=== PATIENT | female | born 1945 | race Caucasian/White ===

== ENCOUNTER 2017-11-20 20:15 | Inpatient (IN) | payer MEDICARE, OTHER ==
[2017-11-20] MEDS ORDERED: Zithromax 500 MG/ 250 ML NaCl Premix 500 MG/250 ML IVPB IV STA (20:21)
[2017-11-20] MEDS ORDERED: Xopenex 1.25 MG/0.5 ML UD NEBULE IH ONE ×2 (20:21→20:52)
[2017-11-20] MEDS ORDERED: ROCEPHIN 1 Gm-D5w 50 ml Bag** 1 G/50 ML IVPB IV STA (20:21)
--- NOTE | 2017-11-20 20:21 | ERPHSYRPT ---
- History of Present Illness Time Seen by Provider: 11/20/17 20:15 Source: patient Exam Limitations: no limitations Physician History: SINCE 8 AM TODAY PT HAS HAD SHORTNESS OF AIR; DENIES CHEST PAIN, FEVER, COUGH, ABDOMINAL PAIN. Allergies/Adverse Reactions: codeine Allergy (Severe, Verified 11/20/17 20:43) Swelling SOB quinine Allergy (Severe, Verified 11/20/17 20:43) "DRAW UP INTO ANTONELLA Sulfa (Sulfonamide Antibiotics) Allergy (Mild, Verified 11/20/17 20:43) IV CONTRAST Allergy (Uncoded 11/20/17 20:43) Swelling "DRAW UP INTO A POSTION Home Medications: Fluticasone/Salmeterol [Advair 500-50 Diskus] 1 disk IH BID 04/12/12 [History] Ipratropium/Albuterol Sulfate [Combivent Inhaler] 14.7 gm IH DAILY 04/12/12 [ History] Lorazepam 1 mg [Ativan 1 MG] 2 mg PO HS 04/12/12 [History] Metoprolol Tartrate 25 mg [Lopressor 25MG Tab] 12.5 mg PO BID 04/12/12 [ History] Polyethylene Glycol 3350 17 gm [Miralax Powder 17GM PACKET] 17 gm PO DAILY PRN 04/12/12 [History] Prednisolone [Millipred Dp] 5 mg PO DAILY 04/12/12 [History] Tiotropium [place] Inhaler [Spiriva 18 Mcg/Cap Inhaler] 1 ea IH DAILY 12/07 [History] Hx Tetanus, Diphtheria Vaccination/Date Given: No Hx Influenza Vaccination/Date Given: Yes (2012) Hx Pneumococcal Vaccination/Date Given: Yes (2008) - Review of Systems Constitutional: No Fever Respiratory: Dyspnea, No Cough Cardiac: No Chest Pain Abdominal/Gastrointestinal: No Abdominal Pain, No Vomiting All Other Systems: Reviewed and Negative - Past Medical History Pertinent Past Medical History: Yes Neurological History: No Pertinent History ENT History: No Pertinent History Cardiac History: Angina, Hypertension Respiratory History: Asthma, Bronchitis, COPD, Pneumonia Endocrine Medical History: No Pertinent History Musculoskeletal History: No Pertinent History GI Medical History: Gallbladder Disease History: No Pertinent History Psycho-Social History: Anxiety Female Reproductive Disorders: No Pertinent History - Past Surgical History Past Surgical History: Yes Neuro Surgical History: No Pertinent History Cardiac: Cardiac Stent Respiratory: No Pertinent History Gastrointestinal: Bowel Surgery, Cholecystectomy Genitourinary: Other Female Surgical History: Hysterectomy Other Surgical History: BLADDER TACKED. 2 BACK. - Social History Smoking Status: Former smoker Exposure to second hand smoke: No Drug Use: none Patient Lives Alone: No - Nursing Vital Signs Nursing Vital Signs: Initial Vital Signs Pulse Rate 112 H 11/20/17 20:22 Respiratory Rate 24 11/20/17 20:22 Blood Pressure 135/88 11/20/17 20:22 O2 Sat by Pulse Oximetry 100 11/20/17 20:22 Pain Scale Pain Intensity 0 - Physical Exam General Appearance: moderate distress, alert Eye Exam: PERRL/EOMI Ears, Nose, Throat Exam: hearing grossly normal, normal pharynx Neck Exam: normal inspection Respiratory Exam: respiratory distress, airway intact, diminished breath sounds , accessory muscle use, wheezing Cardiovascular/Chest Exam: normal heart sounds Abdominal/Gastrointestinal Exam: soft, normal bowel sounds Extremity Exam: No pedal edema Peripheral Pulses Exam: dorsalis-pedis (R): 2+, dorsalis-pedis (L): 2+ Neurologic Exam: alert, cooperative Skin Exam: warm, dry SpO2 Interpretation: hypoxic SpO2: 82 Oxygen Delivery: Nasal Cannula (4L) - Course Nursing assessment & vital signs reviewed: Yes EKG Interpreted by Me: RATE ([id number]), Sinus Tach, NORMAL AXIS, Non-specific ST Changes - Radiology Exams Chest X-ray Interpretation: Interpreted by me (PNEUMONIA) Ordered Tests: Active Orders 24 hr Category Date Time Status [employer] STAT Care 11/20/17 20:22 Active Clean Catch Urine Specimen STAT Care 11/20/17 20:21 Active EKG-ER Only STAT Care 11/20/17 20:21 Active EKG-ER Only STAT Care 11/20/17 23:42 Active IV Insertion STAT Care 11/20/17 20:21 Active Oxygen-ED Only NASAL CANNULA 4 lpm Care 11/21/17 00:01 Active Pulse Oximetry (ED) STAT Care 11/20/17 20:21 Active CHEST 1 VIEW (PORTABLE) Stat Exams 11/20/17 20:22 Taken AMYLASE Stat Lab 11/20/17 20:24 Completed ARTERIAL BLOOD GASES Stat Lab 11/20/17 20:34 Completed ARTERIAL BLOOD GASES Stat Lab 11/21/17 00:48 Completed BLOOD CULTURE Stat Lab 11/20/17 20:50 Received CBC W DIFF Stat Lab 11/20/17 20:25 Completed CMP Stat Lab 11/20/17 20:25 Completed CULTURE,SPUTUM Stat Lab 11/20/17 20:22 Ordered D-DIMER QUANTITATION Stat Lab 11/20/17 20:25 Completed LIPASE Stat Lab 11/20/17 20:24 Completed Lactic Acid Stat Lab 11/20/17 20:34 Completed MAGNESIUM Stat Lab 11/20/17 20:25 Completed NT PRO BNP Stat Lab 11/20/17 20:25 Completed PROTIME WITH INR Stat Lab 11/20/17 20:25 Completed PTT Stat Lab 11/20/17 20:25 Completed TROPONIN Q3H Lab 11/20/17 20:30 Completed TROPONIN Q3H Lab 11/20/17 23:45 Received TROPONIN Q3H Lab 11/21/17 02:45 Ordered TROPONIN Q3H Lab 11/21/17 05:45 Ordered TROPONIN Q3H Lab 11/21/17 08:45 Ordered TROPONIN Q3H Lab 11/21/17 11:45 Ordered UA W/RFX UR CULTURE Stat Lab 11/20/17 20:21 Ordered BiPap/CPAP Assessment STAT RT 11/20/17 20:21 Completed Respiratory Nebulizer STAT RT 11/20/17 20:22 Completed Medication Summary Generic Name Dose Route Start Last Admin Trade Name Freq PRN Reason Stop Dose Admin Sodium Chloride 1,000 mls @ 100 mls/hr 11/20/17 20:30 11/20/17 20:30 Sodium Chloride 0.9% 1000 Ml IV 12/20/17 20:29 100 mls/hr .Q10H JAILENE Administration Discontinued Medications Generic Name Dose Route Start Last Admin Trade Name Freq PRN Reason Stop Dose Admin Acetaminophen 650 mg 11/20/17 22:06 11/20/17 22:13 Tylenol 325 Mg PO 11/20/17 22:07 650 mg STAT ONE Administration Acetaminophen Confirm 11/20/17 22:10 Tylenol 325 Mg Administered 11/20/17 22:11 Dose 650 mg .ROUTE .STK-MED ONE Ceftriaxone Sodium/Dextrose 1 g in 50 mls @ 100 mls/hr 11/20/17 20:21 21:10 Rocephin 1 Gm-D5w 50 Ml Bag IV 11/20/17 20:50 100 mls/hr STAT STA Administration Sodium Chloride 1,000 mls @ 999 mls/hr 11/20/17 20:24 11/20/17 20:30 Sodium Chloride 0.9% 1000 Ml IV 11/20/17 21:24 999 mls/hr .Q1H1M STA Administration Azithromycin 500 mg in 250 mls @ 250 mls/hr 11/20/17 20:21 11/20/17 21:11 Zithromax 500 Mg/ 250 Ml Nacl Premix IV 11/20/17 21:20 250 mls/hr STAT STA Administration Azithromycin Confirm 11/20/17 20:55 Zithromax 500 Mg/ 250 Ml Nacl Premix Administered 11/20/17 20:56 Dose 500 mg in 250 mls @ ud IV .STK-MED ONE Ceftriaxone Sodium/Dextrose Confirm 11/20/17 20:55 Rocephin 1 Gm-D5w 50 Ml Bag Administered 11/20/17 20:56 Dose 1 g in 50 mls @ ud IV .STK-MED ONE Levalbuterol HCl 1.25 mg 11/20/17 20:21 11/20/17 20:52 Xopenex 1.25 Mg/0.5 Ml Ud Nebule IH 11/20/17 20:22 1.25 mg STAT ONE Administration Levalbuterol HCl Confirm 11/20/17 20:52 Xopenex 1.25 Mg/0.5 Ml Ud Nebule Administered 11/20/17 20:53 Dose 1.25 mg IH .STK-MED ONE Levalbuterol HCl 1.25 mg 11/21/17 00:51 Xopenex 1.25 Mg/0.5 Ml Ud Nebule IH 11/21/17 00:52 STAT ONE Morphine Sulfate Confirm 11/20/17 23:17 Morphine Sulfate 4 Mg Inj Administered 11/20/17 23:18 Dose 4 mg .ROUTE .STK-MED ONE Morphine Sulfate 4 mg 11/20/17 23:20 11/20/17 23:23 Morphine Sulfate 4 Mg Inj IV 11/20/17 23:21 4 mg STAT ONE Administration Nitroglycerin 0.4 mg 11/20/17 21:21 11/20/17 20:26 Nitrostat 0.4 Mg (Ed) SL 11/20/17 21:22 0.4 mg STAT ONE Administration Promethazine HCl Confirm 11/20/17 23:17 Phenergan 25 Mg Inj Administered 11/20/17 23:18 Dose 25 mg .ROUTE .STK-MED ONE Promethazine HCl 6.25 mg 11/20/17 23:20 11/20/17 23:23 Phenergan 25 Mg Inj IV 11/20/17 23:21 6.25 mg STAT ONE Administration Sodium Chloride Confirm 11/20/17 20:52 Sodium Chloride 3 Ml Ud Nebules Administered 11/20/17 20:53 Dose 3 ml IH .STK-MED ONE Lab/Rad Data: Laboratory Result Diagrams 11/20/17 20:25 11/20/17 20:25 Laboratory Results 11/21/17 11/20/17 11/20/17 Range/Units 00:48 20:34 20:34 WBC (4.0-10.5) K/mm3 RBC (4.1-5.4) M/mm3 Hgb (12.0-16.0) gm/dl Hct (35-47) % MCV (78-100) fl MCH (26-32) pg MCHC (32-36) g/dl RDW (11.5-14.0) % Plt Count (150-450) K/mm3 MPV (6-9.5) fl Gran % (36.0-66.0) % Eos # (Auto) (0-0.5) Absolute Lymphs (auto) (1.0-4.6) Absolute Monos (auto) (0.0-1.3) Lymphocytes % (24.0-44.0) % Monocytes % (0.0-12.0) % Eosinophils % (0.00-5.0) % Basophils % (0.0-0.4) % Absolute Granulocytes (1.4-6.9) Basophils # (0-0.4) PT (9.95-12.35) SECONDS INR (0.8-3.0) APTT (25.3-37.0) SECONDS D-Dimer (215-500) ng/mL Puncture Site LEFT RADIAL RIGHT BRACHIAL pCO2 60 H* 43 (35-45) mmHg pO2 103 H 156 H* (75-100) mmHg Base Excess -1.1 1.5 (-2.0-2.0) O2 Saturation 95.1 96.0 (94-100) g/dF ABG pH 7.26 L 7.40 (7.35-7.45) ABG HCO3 26.9 26.6 (22-28) ABG O2 Sat (Measured) 98.3 99.0 (95-100) % Giles Test YES NOT APPLICABLE A-a Gradient 79 147 a/A Ratio 0.57 0.51 Hemoglobin 11.9 11.6 Carboxyhemoglobin 2.3 1.7 (0.0-6.9) % THgb Methemoglobin 1.0 L 1.2 L (1.4-1.5) % Temperature 37.0 37.0 C POC O2 Flow Rate 36 50 % Inspiratory BiPAP 12 Expiratory BiPAP 6 Sodium (137-145) mmol/L Potassium 4.6 3.4 L (3.5-5.1) mmol/L Chloride (98-107) mmol/L Carbon Dioxide (22-30) mmol/L Anion Gap (5-15) MEQ/L BUN (7-17) mg/dL Creatinine (0.52-1.04) mg/dL Estimated GFR ML/MIN Glucose (74-106) mg/dL Lactic Acid 0.9 (0.4-2.0) Calcium (8.4-10.2) mg/dL Magnesium (1.6-2.3) mg/dL Total Bilirubin (0.2-1.3) mg/dL AST (14-36) U/L ALT (0-35) U/L Alkaline Phosphatase (38-126) U/L Troponin I (0.000-0.034) ng/mL NT-Pro-B Natriuret Pep (0-900) pg/mL Serum Total Protein (6.3-8.2) g/dL Albumin (3.5-5.0) g/dL Amylase (30-110) U/L Lipase (23-300) U/L 11/20/17 11/20/17 11/20/17 Range/Units 20:30 20:25 20:25 WBC (4.0-10.5) K/mm3 RBC (4.1-5.4) M/mm3 Hgb (12.0-16.0) gm/dl Hct (35-47) % MCV (78-100) fl MCH (26-32) pg MCHC (32-36) g/dl RDW (11.5-14.0) % Plt Count (150-450) K/mm3 MPV (6-9.5) fl Gran % (36.0-66.0) % Eos # (Auto) (0-0.5) Absolute Lymphs (auto) (1.0-4.6) Absolute Monos (auto) (0.0-1.3) Lymphocytes % (24.0-44.0) % Monocytes % (0.0-12.0) % Eosinophils % (0.00-5.0) % Basophils % (0.0-0.4) % Absolute Granulocytes (1.4-6.9) Basophils # (0-0.4) PT 13.1 H (9.95-12.35) SECONDS INR 1.18 (0.8-3.0) APTT 31.9 (25.3-37.0) SECONDS D-Dimer 397.63 (215-500) ng/mL Puncture Site pCO2 (35-45) mmHg pO2 (75-100) mmHg Base Excess (-2.0-2.0) O2 Saturation (94-100) g/dF ABG pH (7.35-7.45) ABG HCO3 (22-28) ABG O2 Sat (Measured) (95-100) % Giles Test A-a Gradient a/A Ratio Hemoglobin Carboxyhemoglobin (0.0-6.9) % THgb Methemoglobin (1.4-1.5) % Temperature C POC O2 Flow Rate % Inspiratory BiPAP Expiratory BiPAP Sodium 139 (137-145) mmol/L Potassium 4.2 (3.5-5.1) mmol/L Chloride 98 (98-107) mmol/L Carbon Dioxide 32 H (22-30) mmol/L Anion Gap 13.5 (5-15) MEQ/L BUN 13 (7-17) mg/dL Creatinine 0.70 (0.52-1.04) mg/dL Estimated GFR > 60.0 ML/MIN Glucose 146 H (74-106) mg/dL Lactic Acid (0.4-2.0) Calcium 9.4 (8.4-10.2) mg/dL Magnesium 1.9 (1.6-2.3) mg/dL Total Bilirubin 0.50 (0.2-1.3) mg/dL AST 48 H (14-36) U/L ALT 29 (0-35) U/L Alkaline Phosphatase 95 (38-126) U/L Troponin I < 0.012 (0.000-0.034) ng/mL NT-Pro-B Natriuret Pep 172 (0-900) pg/mL Serum Total Protein 7.5 (6.3-8.2) g/dL Albumin 4.2 (3.5-5.0) g/dL Amylase (30-110) U/L Lipase (23-300) U/L 11/20/17 11/20/17 Range/Units 20:25 20:24 WBC 23.2 H (4.0-10.5) K/mm3 RBC 4.70 (4.1-5.4) M/mm3 Hgb 12.8 (12.0-16.0) gm/dl Hct 41.7 (35-47) % MCV 88.7 (78-100) fl MCH 27.2 (26-32) pg MCHC 30.7 L (32-36) g/dl RDW 14.0 (11.5-14.0) % Plt Count 305 (150-450) K/mm3 MPV 10.6 H (6-9.5) fl Gran % 67.3 H (36.0-66.0) % Eos # (Auto) 0.18 (0-0.5) Absolute Lymphs (auto) 4.36 (1.0-4.6) Absolute Monos (auto) 2.99 H (0.0-1.3) Lymphocytes % 18.8 L (24.0-44.0) % Monocytes % 12.9 H (0.0-12.0) % Eosinophils % 0.8 (0.00-5.0) % Basophils % 0.2 (0.0-0.4) % Absolute Granulocytes 15.63 H (1.4-6.9) Basophils # 0.04 (0-0.4) PT (9.95-12.35) SECONDS INR (0.8-3.0) APTT (25.3-37.0) SECONDS D-Dimer (215-500) ng/mL Puncture Site pCO2 (35-45) mmHg pO2 (75-100) mmHg Base Excess (-2.0-2.0) O2 Saturation (94-100) g/dF ABG pH (7.35-7.45) ABG HCO3 (22-28) ABG O2 Sat (Measured) (95-100) % Giles Test A-a Gradient a/A Ratio Hemoglobin Carboxyhemoglobin (0.0-6.9) % THgb Methemoglobin (1.4-1.5) % Temperature C POC O2 Flow Rate % Inspiratory BiPAP Expiratory BiPAP Sodium (137-145) mmol/L Potassium (3.5-5.1) mmol/L Chloride (98-107) mmol/L Carbon Dioxide (22-30) mmol/L Anion Gap (5-15) MEQ/L BUN (7-17) mg/dL Creatinine (0.52-1.04) mg/dL Estimated GFR ML/MIN Glucose (74-106) mg/dL Lactic Acid (0.4-2.0) Calcium (8.4-10.2) mg/dL Magnesium (1.6-2.3) mg/dL Total Bilirubin (0.2-1.3) mg/dL AST (14-36) U/L ALT (0-35) U/L Alkaline Phosphatase (38-126) U/L Troponin I (0.000-0.034) ng/mL NT-Pro-B Natriuret Pep (0-900) pg/mL Serum Total Protein (6.3-8.2) g/dL Albumin (3.5-5.0) g/dL Amylase 50 (30-110) U/L Lipase 35 (23-300) U/L - Progress Discussed with Dr.: Supa (OBS - [id number]) - Departure Time of Disposition: 01:00 Departure Disposition: Observation Clinical Impression: ACUTE RESPIRATORY FAILURE, PNEUMONIA, COPD, ANXIETY, HTN Condition: Stable Critical Care Time: Yes Critical Care Time(excluding separately billable procedures): 30-74 minutes Referrals: LETI MORALES MD [Primary Care Provider] -
[2017-11-20] MEDS ORDERED: Sodium Chloride 0.9% 1000 ML 1,000 ML IV STA (20:24)
[2017-11-20] MEDS ORDERED: Sodium Chloride 0.9% 1000 ML 1,000 ML IV SCH (20:30)
[2017-11-20] MEDS ORDERED: Sodium Chloride 0.9% 1000 ML 2,000 ML ONE (20:30)
[2017-11-20 20:48] LABS: A-aADO2 147; ABG HEMOGLOBIN 11.6; ABG POTASSIUM 3.4 (3.5-5.1); ARTERIAL BLOOD GAS BASE EXCESS 1.5 (-2.0-2.0); ARTERIAL BLOOD GAS FIO2 50 %; ARTERIAL BLOOD GAS PCO2 43 mmHg (35-45); ARTERIAL BLOOD GAS PO2 156 mmHg (75-100); CARBOXYHEMOGLOBIN 1.7 % THgb (0.0-6.9); HCO3- 26.6 (22-28); Methhemoglobin 1.2 % (1.4-1.5); paO2 pAO1 0.51
[2017-11-20 20:49] LABS: ABG SITE RIGHT BRACHIAL
[2017-11-20] MEDS ORDERED: Sodium Chloride 3 ML UD NEBULES IH ONE (20:52)
[2017-11-20] MEDS ORDERED: Zithromax 500 MG/ 250 ML NaCl Premix 500 MG/250 ML IVPB IV ONE (20:55)
[2017-11-20] MEDS ORDERED: ROCEPHIN 1 Gm-D5w 50 ml Bag** 1 G/50 ML IVPB IV ONE (20:55)
[2017-11-20 21:01] LABS: BASOPHIL % 0.2 % (0.0-0.4); Basophil (Absolute #) 0.04 (0-0.4); Eosinophil % 0.8 % (0.00-5.0); Eosinophil (Absolute #) 0.18 (0-0.5); Granulocyte Absolute (ANC) 15.63 (1.4-6.9); Granulocytes % 67.3 % (36.0-66.0); Hematocrit 41.7 % (35-47); Hemoglobin 12.8 gm/dl (12.0-16.0); Lymphocyte (Absolute #) 4.36 (1.0-4.6); Lymphocytes % 18.8 % (24.0-44.0); Mean Cell Volume 88.7 fl (78-100); Mean Corpuscular Hemoglobin 27.2 pg (26-32); Mean Corpuscular Hgb Concent. 30.7 g/dl (32-36); Mean Platelet Volume 10.6 fl (6-9.5); Monocyte (Absolute #) 2.99 (0.0-1.3); Monocytes % 12.9 % (0.0-12.0); Platelet Count 305 K/mm3 (150-450); White Blood Count 23.2 K/mm3 (4.0-10.5)
[2017-11-20 21:15] LABS: INR 1.18 (0.8-3.0)
[2017-11-20 21:17] LABS: D-DIMER QUANTITATION 397.63 ng/mL (215-500)
[2017-11-20] MEDS ORDERED: Nitrostat 0.4 MG (ED) SL ONE (21:21)
[2017-11-20 21:22] LABS: ALBUMIN 4.2 g/dL (3.5-5.0); ALKALINE PHOSPHATASE 95 U/L (38-126); ANION GAP 13.5 MEQ/L (5-15); BLOOD UREA NITROGEN 13 mg/dL (7-17); CHLORIDE 98 mmol/L (98-107); Calcium 9.4 mg/dL (8.4-10.2); Carbon Dioxide 32 mmol/L (22-30); Glucose 146 mg/dL (74-106); Potassium 4.2 mmol/L (3.5-5.1); SGOT/AST 48 U/L (14-36); SGPT/ALT 29 U/L (0-35); SODIUM 139 mmol/L (137-145); Total Protein 7.5 g/dL (6.3-8.2)
[2017-11-20 21:22] LABS: AMYLASE 50 U/L (30-110); LIPASE 35 U/L (23-300)
[2017-11-20 21:23] LABS: PTT 31.9 SECONDS (25.3-37.0)
[2017-11-20 21:31] LABS: NT PRO BNP 172 pg/mL (0-900)
[2017-11-20] MEDS ORDERED: TYLENOL 325 MG PO ONE (22:06)
[2017-11-20] MEDS ORDERED: TYLENOL 325 MG ONE (22:10)
[2017-11-20] MEDS ORDERED: MORPHINE SULFATE 4 MG INJ ONE (23:17)
[2017-11-20] MEDS ORDERED: Phenergan 25 MG INJ ONE (23:17)
[2017-11-20] MEDS ORDERED: MORPHINE SULFATE 4 MG INJ IV ONE (23:20)
[2017-11-20] MEDS ORDERED: Phenergan 25 MG INJ IV ONE (23:20)
[2017-11-21] MEDS ORDERED: Xopenex 1.25 MG/0.5 ML UD NEBULE IH ONE ×2 (00:51→01:08)
[2017-11-21 00:55] LABS: A-aADO2 79; ABG HEMOGLOBIN 11.9; ABG POTASSIUM 4.6 (3.5-5.1); ARTERIAL BLD GAS O2 SATURATION 98.3 % (95-100); ARTERIAL BLOOD GAS BASE EXCESS -1.1 (-2.0-2.0); ARTERIAL BLOOD GAS FIO2 36 %; ARTERIAL BLOOD GAS PO2 103 mmHg (75-100); ARTERIAL BLOOD GAS pH 7.26 (7.35-7.45); CARBOXYHEMOGLOBIN 2.3 % THgb (0.0-6.9); HCO3- 26.9 (22-28); HGB O2 SAT 95.1 g/dF (94-100); paO2 pAO1 0.57
[2017-11-21 00:56] LABS: ABG SITE LEFT RADIAL; ALLEN TEST OK? YES; ARTERIAL BLOOD GAS PCO2 60 mmHg (35-45)
[2017-11-21] MEDS ORDERED: Sodium Chloride 3 ML UD NEBULES IH ONE (01:08)
[2017-11-21 01:12] LABS: Appearance CLEAR (CLEAR); Bilirubin NEGATIVE (NEGATIVE); Blood TRACE NON-HEM Ery/ul (0-5); Glucose NEGATIVE (NEGATIVE); Ketones SMALL (NEGATIVE); Leukocyte Esterase NEGATIVE (NEGATIVE); Nitrite POSITIVE (NEGATIVE); Protein,Urine Dip TRACE (Negative); Specific Gravity 1.015 (1.005-1.025); Urobilinogen NORMAL mg/dL (0-1)
[2017-11-21 01:20] LABS: Bacteria MODERATE /HPF (NEGATIVE); Epithelial Cells FEW /HPF (FEW); Hyaline Casts 0-2 /LPF (0-2)
[2017-11-21 01:41] LABS: Slide Review 1 YES
[2017-11-21] MEDS ORDERED: PROVENTIL 2.5 MG/3 ML NEB IH PRN (02:22)
[2017-11-21] MEDS ORDERED: Phenergan 25 MG INJ IV PRN (02:22)
[2017-11-21] MEDS ORDERED: DUONEB 0.5-3 MG/3 ml Neb IH SCH ×2 (03:00→11:00)
[2017-11-21] MEDS: PROVENTIL 2.5 MG/3 ML NEB IH SCH ×5 (05:39→22:58)
[2017-11-21] MEDS: Advair Hfa 230/21 Mcg COMMON CANISTER IH SCH ×2 (05:50→19:03)
[2017-11-21] MEDS: Spiriva 18 Mcg/Cap Inhaler IH SCH (05:50)
[2017-11-21 05:52] LABS: A-aADO2 244; ABG HEMOGLOBIN 11.5; ABG POTASSIUM 4.3 (3.5-5.1); ARTERIAL BLD GAS O2 SATURATION 95.3 % (95-100); ARTERIAL BLOOD GAS BASE EXCESS 0.1 (-2.0-2.0); ARTERIAL BLOOD GAS FIO2 50 %; ARTERIAL BLOOD GAS PCO2 43 mmHg (35-45); ARTERIAL BLOOD GAS PO2 59 mmHg (75-100); ARTERIAL BLOOD GAS pH 7.38 (7.35-7.45); CARBOXYHEMOGLOBIN 3.7 % THgb (0.0-6.9); HCO3- 25.4 (22-28); HGB O2 SAT 90.5 g/dF (94-100); Methhemoglobin 1.2 % (1.4-1.5); paO2 pAO1 0.19
[2017-11-21 05:53] LABS: ABG SITE LEFT RADIAL; ALLEN TEST OK? YES
[2017-11-21 05:59] LABS: BASOPHIL % 0.1 % (0.0-0.4); Basophil (Absolute #) 0.01 (0-0.4); Eosinophil (Absolute #) 0 (0-0.5); Granulocyte Absolute (ANC) 13.14 (1.4-6.9); Hematocrit 36.2 % (35-47); Lymphocyte (Absolute #) 0.49 (1.0-4.6); Lymphocytes % 3.5 % (24.0-44.0); Mean Cell Volume 90.3 fl (78-100); Mean Corpuscular Hemoglobin 27.4 pg (26-32); Mean Corpuscular Hgb Concent. 30.4 g/dl (32-36); Mean Platelet Volume 10.6 fl (6-9.5); Monocytes % 1.4 % (0.0-12.0); Platelet Count 208 K/mm3 (150-450); Red Blood Count 4.01 M/mm3 (4.1-5.4); Red Cell Distribution Width 13.8 % (11.5-14.0); White Blood Count 13.8 K/mm3 (4.0-10.5)
[2017-11-21 06:19] LABS: ALBUMIN 3.7 g/dL (3.5-5.0); ALKALINE PHOSPHATASE 74 U/L (38-126); ANION GAP 14.3 MEQ/L (5-15); BLOOD UREA NITROGEN 15 mg/dL (7-17); CHLORIDE 103 mmol/L (98-107); Calcium 8.2 mg/dL (8.4-10.2); Carbon Dioxide 27 mmol/L (22-30); Creatinine 1 0.61 mg/dL (0.52-1.04); Glucose 133 mg/dL (74-106); Potassium 4.6 mmol/L (3.5-5.1); SGOT/AST 55 U/L (14-36); SGPT/ALT 40 U/L (0-35); SODIUM 140 mmol/L (137-145); Total Protein 6.7 g/dL (6.3-8.2)
[2017-11-21] MEDS: MORPHINE SULFATE 2 MG INJ IV PRN ×4 (06:52→23:07)
[2017-11-21 08:00] LABS: Slide Review 1 YES
--- NOTE | 2017-11-21 08:16 | PCM.HP ---
History of Present Illness - Chief Complaint Chief Complaint: Pneumonia, COPD History of Present Illness: is a 72 year old female who presented to the ER with increasing cough and shortness of breath, she has a history of significant copd and cardiac arrest. - Review of Systems Constitutional: No Fever, No Chills Respiratory: Cough, Short Of Breath Cardiac: No Chest Pain, No Edema, No Syncope Abdominal/Gastrointestinal: No Abdominal Pain, No Nausea, No Vomiting, No Diarrhea Genitourinary Symptoms: No Dysuria Skin: No Rash All Other Systems: Reviewed and Negative Medications & Allergies Home Medications: Home Medication List Fluticasone/Salmeterol [Advair 500-50 Diskus] 1 disk IH BID 04/12/12 [History Confirmed 09/18/13] Ipratropium/Albuterol Sulfate [Combivent Inhaler] 14.7 gm IH DAILY 04/12/12 [ History Confirmed 09/18/13] Lorazepam 1 mg [Ativan 1 MG] 2 mg PO HS 04/12/12 [History Confirmed ] Metoprolol Tartrate 25 mg [Lopressor 25MG Tab] 12.5 mg PO BID 04/12/12 [ History Confirmed 09/18/13] Polyethylene Glycol 3350 17 gm [Miralax Powder 17GM PACKET] 17 gm PO DAILY PRN 04/12/12 [History Confirmed 09/18/13] Prednisolone [Millipred Dp] 5 mg PO DAILY 04/12/12 [History Confirmed 09/18/13] Tiotropium [place] Inhaler [Spiriva 18 Mcg/Cap Inhaler] 1 ea IH DAILY 12/07 [History Confirmed 09/18/13] Albuterol 2.5 mg/0.5 ml [PROVENTIL Solution 2.5 MG/0.5 ML] 2.5 mg IH TID # 0 vial.neb. 04/13/12 [Rx Confirmed 09/18/13] Aspirin [Aspir 81] 81 mg PO DAILY #0 tablet.dr 04/13/12 [Rx Confirmed 09/18/13] Allergies/Adverse Reactions: Allergies Allergy/AdvReac Type Severity Reaction Status Date / Time codeine Allergy Severe Swelling Verified 11/20/17 20:43 quinine Allergy Severe Verified 11/20/17 20:43 Sulfa (Sulfonamide Allergy Mild Verified 11/20/17 20:43 Antibiotics) IV CONTRAST Allergy Swelling Uncoded 11/20/17 20:43 - Past Medical History Past Medical History: Yes Neurological History: No Pertinent History ENT History: No Pertinent History Cardiac History: Angina, Coronary Artery Disease, Hypertension, Other Respiratory History: Asthma, Bronchitis, COPD, Pneumonia Endocrine Medical History: No Pertinent History Musculoskelatal History: No Pertinent History GI Medical History: Gallbladder Disease History: No Pertinent History Pyscho-Social History: Anxiety Reproductive Disorders: No Pertinent History Comment: Hx of 5 heart stents - Female History Are you now?: No - Past Surgical History Past Surgical History: Yes Neuro Surgical History: No Pertinent History Cardiac History: Cardiac Stent Respiratory Surgery: No Pertinent History GI Surgical History: Cholecystectomy, Rectal Surgery Genitourinary Surgical Hx: Other Female Surgical History: Hysterectomy Other Surgical History: BLADDER TACKED. 2 BACK surgery. - Social History Smoking Status: Former smoker Exposure to second hand smoke: No Alcohol: None Drug Use: none - Physical Exam Vital Signs: Vital Signs - 24 hr Temp Pulse Resp BP Pulse Ox 11/21/17 05:39 86 18 98 11/21/17 04:00 97.6 F 79 18 120/94 99 11/21/17 03:00 99 11/21/17 02:30 93 H 18 157/114 99 11/21/17 01:09 93 H 18 99 11/21/17 01:03 82 L 11/21/17 00:40 79 28 H 157/114 93 L 11/20/17 23:57 79 24 122/76 99 11/20/17 23:02 84 24 139/89 99 11/20/17 22:04 83 24 116/98 99 11/20/17 21:05 109 H 24 157/80 99 11/20/17 20:52 111 H 24 100 11/20/17 20:39 100 11/20/17 20:23 144 H 28 H 200/139 83 L 11/20/17 20:22 112 H 24 135/88 100 Oxygen-Last 24 hours O2 Percentage 50% O2 Percentage 4 Liters = 36% O2 Percentage 4 Liters = 36% General Appearance: no apparent distress, alert Eye Exam: PERRL/EOMI, eyes nml inspection Respiratory Exam: diminished breath sounds, prolonged expirations, wheezing Cardiovascular Exam: regular rate/rhythm, normal heart sounds, normal peripheral pulses Gastrointestinal/Abdomen Exam: soft, normal bowel sounds, No tenderness, No mass Extremity Exam: normal inspection, normal range of motion, pelvis stable Skin Exam: normal color, warm, dry, No rash Results - Labs Lab/Micro Results: Lab Results-Last 24 Hours 11/21/17 11/21/17 11/21/17 Range/Units 02:35 05:44 05:55 WBC (4.0-10.5) K/mm3 RBC (4.1-5.4) M/mm3 Hgb (12.0-16.0) gm/dl Hct (35-47) % MCV (78-100) fl MCH (26-32) pg MCHC (32-36) g/dl RDW (11.5-14.0) % Plt Count (150-450) K/mm3 MPV (6-9.5) fl Gran % (36.0-66.0) % Eos # (Auto) (0-0.5) Absolute Lymphs (auto) (1.0-4.6) Absolute Monos (auto) (0.0-1.3) Lymphocytes % (24.0-44.0) % Monocytes % (0.0-12.0) % Eosinophils % (0.00-5.0) % Basophils % (0.0-0.4) % Absolute Granulocytes (1.4-6.9) Basophils # (0-0.4) Puncture Site LEFT RADIAL pCO2 43 (35-45) mmHg pO2 59 L (75-100) mmHg Base Excess 0.1 (-2.0-2.0) O2 Saturation 90.5 L (94-100) g/dF ABG pH 7.38 (7.35-7.45) ABG HCO3 25.4 (22-28) ABG O2 Sat (Measured) 95.3 (95-100) % Giles Test YES A-a Gradient 244 a/A Ratio 0.19 Hemoglobin 11.5 Carboxyhemoglobin 3.7 (0.0-6.9) % THgb Methemoglobin 1.2 L (1.4-1.5) % Potassium 4.3 (3.5-5.1) Temperature 37.0 C POC O2 Flow Rate 50 % Inspiratory BiPAP 14 Expiratory BiPAP 6 Sodium (137-145) mmol/L Chloride (98-107) mmol/L Carbon Dioxide (22-30) mmol/L Anion Gap (5-15) MEQ/L BUN (7-17) mg/dL Creatinine (0.52-1.04) mg/dL Estimated GFR ML/MIN Glucose (74-106) mg/dL Calcium (8.4-10.2) mg/dL Total Bilirubin (0.2-1.3) mg/dL AST (14-36) U/L ALT (0-35) U/L Alkaline Phosphatase (38-126) U/L Troponin I 0.020 0.012 (0.000-0.034) ng/mL Serum Total Protein (6.3-8.2) g/dL Albumin (3.5-5.0) g/dL Slides for Path Review 11/21/17 11/21/17 Range/Units 05:55 05:55 WBC 13.8 H (4.0-10.5) K/mm3 RBC 4.01 L (4.1-5.4) M/mm3 Hgb 11.0 L (12.0-16.0) gm/dl Hct 36.2 (35-47) % MCV 90.3 (78-100) fl MCH 27.4 (26-32) pg MCHC 30.4 L (32-36) g/dl RDW 13.8 (11.5-14.0) % Plt Count 208 (150-450) K/mm3 MPV 10.6 H (6-9.5) fl Gran % 95.0 H (36.0-66.0) % Eos # (Auto) 0 (0-0.5) Absolute Lymphs (auto) 0.49 L (1.0-4.6) Absolute Monos (auto) 0.20 (0.0-1.3) Lymphocytes % 3.5 L (24.0-44.0) % Monocytes % 1.4 (0.0-12.0) % Eosinophils % 0.0 (0.00-5.0) % Basophils % 0.1 (0.0-0.4) % Absolute Granulocytes 13.14 H (1.4-6.9) Basophils # 0.01 (0-0.4) Puncture Site pCO2 (35-45) mmHg pO2 (75-100) mmHg Base Excess (-2.0-2.0) O2 Saturation (94-100) g/dF ABG pH (7.35-7.45) ABG HCO3 (22-28) ABG O2 Sat (Measured) (95-100) % Giles Test A-a Gradient a/A Ratio Hemoglobin Carboxyhemoglobin (0.0-6.9) % THgb Methemoglobin (1.4-1.5) % Potassium 4.6 (3.5-5.1) Temperature C POC O2 Flow Rate % Inspiratory BiPAP Expiratory BiPAP Sodium 140 (137-145) mmol/L Chloride 103 (98-107) mmol/L Carbon Dioxide 27 (22-30) mmol/L Anion Gap 14.3 (5-15) MEQ/L BUN 15 (7-17) mg/dL Creatinine 0.61 (0.52-1.04) mg/dL Estimated GFR > 60.0 ML/MIN Glucose 133 H (74-106) mg/dL Calcium 8.2 L (8.4-10.2) mg/dL Total Bilirubin 0.20 (0.2-1.3) mg/dL AST 55 H (14-36) U/L ALT 40 H (0-35) U/L Alkaline Phosphatase 74 (38-126) U/L Troponin I (0.000-0.034) ng/mL Serum Total Protein 6.7 (6.3-8.2) g/dL Albumin 3.7 (3.5-5.0) g/dL Slides for Path Review YES - Other Procedures and Tests Respiratory Therapy 11/21/17 04:24 Respiratory Nebulizer PRN 11/21/17 04:25 Oxygen NASAL CANNULA 4 lpm 11/21/17 07:00 Respiratory MDI BID Respiratory Nebulizer Q4H 11/21/17 10:00 Respiratory MDI DAILY Assessment/Plan (1) Acute and chronic respiratory failure ([id number]) Current Visit: Yes Status: Acute Assessment & Plan: will consult Dr Santillan, continue current managment with nebs, steroids and abx at this time Code(s): J96.20 - ACUTE AND CHR RESP FAILURE, UNSP W HYPOXIA OR HYPERCAPNIA (2) Acute exacerbation of chronic obstructive airways disease Current Visit: No Status: Acute Assessment & Plan: patient not tolerating weaning bipap, currently on 70% FiO2 Code(s): J44.1 - CHRONIC OBSTRUCTIVE PULMONARY DISEASE W (ACUTE) EXACERBATION
--- NOTE | 2017-11-21 08:59 | XRAY ---
Indication: Short of breath. Comparison: September 20, 2013. Portable chest again emphysematous with new bilateral mid to lower lung interstitial alveolar opacities and small effusions, right greater than left. Heart is not enlarged. Stable osteopenia and mild degenerative changes.
[2017-11-21] MEDS: solu-MEDROL 125 MG IV SCH ×2 (09:25→18:18)
[2017-11-21] MEDS: TYLENOL 325 MG PO PRN ×2 (09:28→21:23)
[2017-11-21] MEDS: Sodium Chloride 0.9% 1000 ML 1,000 ML IV SCH ×3 (09:38→21:18)
[2017-11-21] MEDS ORDERED: Lopressor 25MG Tab PO SCH (10:00)
[2017-11-21 10:06] LABS: A-aADO2 170; ABG HEMOGLOBIN 10.9; ABG POTASSIUM 4.2 (3.5-5.1); ABG SITE LEFT RADIAL; ALLEN TEST OK? YES; ARTERIAL BLOOD GAS FIO2 60 %; ARTERIAL BLOOD GAS PCO2 55 mmHg (35-45); ARTERIAL BLOOD GAS PO2 189 mmHg (75-100); CARBOXYHEMOGLOBIN 1.3 % THgb (0.0-6.9); HCO3- 27.1 (22-28); HGB O2 SAT 96.2 g/dF (94-100); Methhemoglobin 1.5 % (1.4-1.5); paO2 pAO1 0.53
[2017-11-21 10:10] LABS: Appearance CLEAR (CLEAR); Leukocyte Esterase NEGATIVE (NEGATIVE); Nitrite NEGATIVE (NEGATIVE); Specific Gravity 1.025 (1.005-1.025)
[2017-11-21 10:11] LABS: Bilirubin NEGATIVE (NEGATIVE); Blood 50 Ery/ul (0-5); Glucose NEGATIVE (NEGATIVE); Ketones LARGE-80 (NEGATIVE); Protein,Urine Dip TRACE (Negative); Urobilinogen NORMAL mg/dL (0-1)
[2017-11-21] MEDS: ECOTRIN 81 MG PO SCH (10:43)
[2017-11-21] MEDS: Zithromax 500 MG/ 250 ML NaCl Premix 500 MG/250 ML IVPB IV SCH ×2 (10:49→21:19)
[2017-11-21] MEDS ORDERED: Miralax Powder 17GM PACKET PO PRN (17:22)
[2017-11-21] MEDS: PLAVIX 75 MG Tablet PO SCH (18:18)
[2017-11-21] MEDS: ROCEPHIN 1 Gm-D5w 50 ml Bag** 1 G/50 ML IVPB IV SCH (21:19)
[2017-11-21] MEDS: BENADRYL 25 MG CAPSULE PO SCH (21:19)
[2017-11-21] MEDS: Ativan 1 MG PO SCH (21:21)
[2017-11-21] MEDS: ZOCOR 20MG PO SCH (21:21)
[2017-11-21] MEDS ORDERED: [UNRECOGNIZED DRUG - OTHER] PO SCH (22:00)
[2017-11-21] MEDS ORDERED: NORVASC 5 MG PO SCH (22:00)
[2017-11-21] MEDS ORDERED: NON-FORMULARY ITEM (Atorvastatin Calcium [Atorvastatin Calcium] 20 MG) PO SCH (22:00)
[2017-11-21] MEDS ORDERED: DIPHENHYDRAMINE PO SCH (22:00)
[2017-11-21] MEDS ORDERED: ACETAMINOPHEN PO SCH (22:00)
[2017-11-22] MEDS: solu-MEDROL 125 MG IV SCH ×4 (00:48→18:45)
[2017-11-22] MEDS: PROVENTIL 2.5 MG/3 ML NEB IH SCH ×4 (03:00→15:08)
[2017-11-22 05:32] LABS: Granulocyte Absolute (ANC) 9.29 (1.4-6.9); Hematocrit 32.8 % (35-47); Hemoglobin 9.8 gm/dl (12.0-16.0); Mean Cell Volume 89.9 fl (78-100); Mean Corpuscular Hemoglobin 26.8 pg (26-32); Mean Corpuscular Hgb Concent. 29.9 g/dl (32-36); Mean Platelet Volume 10.3 fl (6-9.5); Platelet Count 228 K/mm3 (150-450); Red Blood Count 3.65 M/mm3 (4.1-5.4); Red Cell Distribution Width 13.7 % (11.5-14.0)
[2017-11-22] MEDS: MORPHINE SULFATE 2 MG INJ IV PRN ×4 (05:51→23:30)
[2017-11-22 05:53] LABS: ALBUMIN 3.4 g/dL (3.5-5.0); ALKALINE PHOSPHATASE 67 U/L (38-126); BILIRUBIN,TOTAL < 0.10 mg/dL (0.2-1.3); BLOOD UREA NITROGEN 14 mg/dL (7-17); CHLORIDE 104 mmol/L (98-107); Calcium 8.5 mg/dL (8.4-10.2); Carbon Dioxide 28 mmol/L (22-30); Creatinine 1 0.52 mg/dL (0.52-1.04); Glucose 142 mg/dL (74-106); Potassium 3.9 mmol/L (3.5-5.1); SGOT/AST 40 U/L (14-36); SGPT/ALT 31 U/L (0-35); SODIUM 139 mmol/L (137-145); Total Protein 6.1 g/dL (6.3-8.2)
[2017-11-22] MEDS: Advair Hfa 230/21 Mcg COMMON CANISTER IH SCH ×2 (06:53→19:39)
[2017-11-22] MEDS: Spiriva 18 Mcg/Cap Inhaler IH SCH (06:54)
[2017-11-22] MEDS: Sodium Chloride 0.9% 1000 ML 1,000 ML IV SCH ×2 (07:52→19:30)
[2017-11-22] MEDS ORDERED: Ativan 2 MG/1 ML VIAL IV ONE (08:39)
--- NOTE | 2017-11-22 08:41 | PCM.NOTE ---
Date and Time: 11/22/17 0837 Subjective Assessment: Feeling "100% better" from admission. Sophie po but poor appetite. - Review of Systems Constitutional: No Fever Respiratory: Cough Objective Exam General Appearance: no apparent distress, alert Neurologic Exam: oriented x 3, cooperative Skin Exam: normal color, warm, dry, No rash Ears, Nose, Throat Exam: moist mucous membranes Respiratory Exam: diminished breath sounds (poor air exchange), prolonged expirations, wheezing (faint wheeze, scattered), No crackles/rales, No rhonchi Cardiovascular Exam: regular rate/rhythm, normal heart sounds, No murmur Extremity Exam: No pedal edema, No swelling Back Exam: normal inspection, No rash OBJECTIVE DATA Vital Signs: Vital Signs - 24 hr Temp Pulse Resp BP Pulse Ox 11/22/17 08:00 97.8 F 104 H 25 H 150/86 97 11/22/17 06:54 78 18 93 L 11/22/17 04:00 97.8 F 105 H 24 164/87 90 L 11/22/17 03:21 87 20 99 11/22/17 00:00 97.7 F 89 19 132/80 96 11/21/17 23:08 90 18 97 11/21/17 19:47 98.4 F 94 H 17 160/82 97 11/21/17 19:06 95 H 22 94 L 11/21/17 16:00 98.8 F 95 H 23 141/82 94 L 11/21/17 14:50 85 17 96 11/21/17 13:24 100 H 26 H 99 11/21/17 12:00 98.6 F 86 21 141/83 97 11/21/17 10:16 97 H 20 98 11/21/17 09:15 100 H 20 99 Oxygen-Last 24 hours O2 Percentage 40% O2 Percentage 40% O2 Percentage 40% O2 Percentage 50% Oxygen Flowrate (L/min)-RT 30 Oxygen Flowrate (L/min)-RT 30 Oxygen Flowrate (L/min)-RT 30 Pain Assessment - Last Documented Pain Intensity 8 Pain Scale Used 0-10 Pain Scale Intake and Output: Intake & Output 11/19/17 11/20/17 11/21/17 11/22/17 11:59 11:59 11:59 11:59 Intake Total 2969 Output Total 1675 Balance 1294 Weight 48.2 kg Lab Results: Lab Results-Last 24 Hours 11/21/17 11/21/17 11/21/17 Range/Units 08:55 09:29 10:04 WBC (4.0-10.5) K/mm3 RBC (4.1-5.4) M/mm3 Hgb (12.0-16.0) gm/dl Hct (35-47) % MCV (78-100) fl MCH (26-32) pg MCHC (32-36) g/dl RDW (11.5-14.0) % Plt Count (150-450) K/mm3 MPV (6-9.5) fl Absolute Granulocytes (1.4-6.9) Puncture Site LEFT RADIAL pCO2 55 H (35-45) mmHg pO2 189 H* (75-100) mmHg Base Excess 0.0 (-2.0-2.0) O2 Saturation 96.2 (94-100) g/dF ABG pH 7.30 L (7.35-7.45) ABG HCO3 27.1 (22-28) ABG O2 Sat (Measured) 99.0 (95-100) % Giles Test YES A-a Gradient 170 a/A Ratio 0.53 Hemoglobin 10.9 Carboxyhemoglobin 1.3 (0.0-6.9) % THgb Methemoglobin 1.5 (1.4-1.5) % Potassium 4.2 (3.5-5.1) Temperature 37.0 C POC O2 Flow Rate 60 % Sodium (137-145) mmol/L Chloride (98-107) mmol/L Carbon Dioxide (22-30) mmol/L Anion Gap (5-15) MEQ/L BUN (7-17) mg/dL Creatinine (0.52-1.04) mg/dL Estimated GFR ML/MIN Glucose (74-106) mg/dL Calcium (8.4-10.2) mg/dL Total Bilirubin (0.2-1.3) mg/dL AST (14-36) U/L ALT (0-35) U/L Alkaline Phosphatase (38-126) U/L Troponin I < 0.012 (0.000-0.034) ng/mL Serum Total Protein (6.3-8.2) g/dL Albumin (3.5-5.0) g/dL Ur Collection Type CATH Urine Color YELLOW (YELLOW) Urine Appearance CLEAR (CLEAR) Urine pH 5.0 (5-6) Ur Specific [place] 1.025 (1.005-1.025) Urine Protein TRACE (Negative) Urine Ketones LARGE-80 (NEGATIVE) Urine Blood 50 (0-5) Matthew/ul Urine Nitrite NEGATIVE (NEGATIVE) Urine Bilirubin NEGATIVE (NEGATIVE) Urine Urobilinogen NORMAL (0-1) mg/dL Ur Leukocyte Esterase NEGATIVE (NEGATIVE) Urine Culture Reflexed YES (NO) Urine Glucose NEGATIVE (NEGATIVE) mg/dL Specimen Received 11/21 0845 11/21/17 11/22/17 11/22/17 Range/Units 11:43 05:20 05:20 WBC 10.0 (4.0-10.5) K/mm3 RBC 3.65 L (4.1-5.4) M/mm3 Hgb 9.8 L (12.0-16.0) gm/dl Hct 32.8 L (35-47) % MCV 89.9 (78-100) fl MCH 26.8 (26-32) pg MCHC 29.9 L (32-36) g/dl RDW 13.7 (11.5-14.0) % Plt Count 228 (150-450) K/mm3 MPV 10.3 H (6-9.5) fl Absolute Granulocytes 9.29 H (1.4-6.9) Puncture Site pCO2 (35-45) mmHg pO2 (75-100) mmHg Base Excess (-2.0-2.0) O2 Saturation (94-100) g/dF ABG pH (7.35-7.45) ABG HCO3 (22-28) ABG O2 Sat (Measured) (95-100) % Giles Test A-a Gradient a/A Ratio Hemoglobin Carboxyhemoglobin (0.0-6.9) % THgb Methemoglobin (1.4-1.5) % Potassium 3.9 (3.5-5.1) Temperature C POC O2 Flow Rate % Sodium 139 (137-145) mmol/L Chloride 104 (98-107) mmol/L Carbon Dioxide 28 (22-30) mmol/L Anion Gap 11.0 (5-15) MEQ/L BUN 14 (7-17) mg/dL Creatinine 0.52 (0.52-1.04) mg/dL Estimated GFR > 60.0 ML/MIN Glucose 142 H (74-106) mg/dL Calcium 8.5 (8.4-10.2) mg/dL Total Bilirubin < 0.10 L (0.2-1.3) mg/dL AST 40 H (14-36) U/L ALT 31 (0-35) U/L Alkaline Phosphatase 67 (38-126) U/L Troponin I < 0.012 (0.000-0.034) ng/mL Serum Total Protein 6.1 L (6.3-8.2) g/dL Albumin 3.4 L (3.5-5.0) g/dL Ur Collection Type Urine Color (YELLOW) Urine Appearance (CLEAR) Urine pH (5-6) Ur Specific [place] (1.005-1.025) Urine Protein (Negative) Urine Ketones (NEGATIVE) Urine Blood (0-5) Matthew/ul Urine Nitrite (NEGATIVE) Urine Bilirubin (NEGATIVE) Urine Urobilinogen (0-1) mg/dL Ur Leukocyte Esterase (NEGATIVE) Urine Culture Reflexed (NO) Urine Glucose (NEGATIVE) mg/dL Specimen Received Assessment/Plan (1) Acute and chronic respiratory failure ([id number]) Current Visit: Yes Status: Acute Onset Date: ~11/20/17 Qualifiers: Respiratory failure complication: hypoxia and hypercapnia Qualified Code(s) : J96.21 - Acute and chronic respiratory failure with hypoxia; J96.22 - Acute and chronic respiratory failure with hypercapnia; J96.22 - Acute and chronic respiratory failure with hypercapnia; J96.22 - Acute and chronic respiratory failure with hypercapnia Code(s): J96.20 - ACUTE AND CHR RESP FAILURE, UNSP W HYPOXIA OR HYPERCAPNIA (2) Acute exacerbation of chronic obstructive airways disease Current Visit: Yes Status: Acute Onset Date: ~11/20/17 Assessment & Plan: on IV rocephin and zithromax, with solumedrol 80mg IV q6h. She is improving, still not to baseline O2 (on HIgh flow 40%). Weaning as tolerated. When she weans down on her O2 a bit more, can d/c to med surg. Code(s): J44.1 - CHRONIC OBSTRUCTIVE PULMONARY DISEASE W (ACUTE) EXACERBATION (3) Anxiety Current Visit: Yes Status: Acute Onset Date: ~11/20/17 Code(s): F41.9 - ANXIETY DISORDER, UNSPECIFIED (4) HTN (hypertension) Current Visit: Yes Status: Acute Onset Date: ~11/20/17 Qualifiers: Hypertension type: essential hypertension Qualified Code(s): I10 - Essential (primary) hypertension Assessment & Plan: bp 132-160/80-101. Code(s): I10 - ESSENTIAL (PRIMARY) HYPERTENSION
[2017-11-22] MEDS: ECOTRIN 81 MG PO SCH (08:50)
[2017-11-22 09:03] LABS: ANISOCYTOSIS 1+; Lymphocytes 5 % (24-44); Neutrophils 95 % (36.0-66.0); Poikilocytosis 1+; Total Cells Counted 100
[2017-11-22 09:04] LABS: Hypochromia 1+; Platelet Estimate NORMAL (NORMAL)
[2017-11-22] MEDS ORDERED: NORVASC 5 MG PO SCH (18:14)
[2017-11-22] MEDS ORDERED: TRANDATE 20 MG/5 ML SYRINGE IV ONE (18:14)
[2017-11-22] MEDS: DUONEB 0.5-3 MG/3 ml Neb IH SCH ×2 (19:39→23:42)
[2017-11-22] MEDS ORDERED: NORVASC 5 MG PO ONE (20:36)
[2017-11-22] MEDS ORDERED: Ventolin Hfa MDI IH SCH (21:00)
[2017-11-22] MEDS: Zithromax 500 MG/ 250 ML NaCl Premix 500 MG/250 ML IVPB IV SCH (21:45)
[2017-11-22] MEDS: ROCEPHIN 1 Gm-D5w 50 ml Bag** 1 G/50 ML IVPB IV SCH (21:46)
[2017-11-22] MEDS: ZOCOR 20MG PO SCH (21:46)
[2017-11-22] MEDS: Ativan 1 MG PO SCH (21:46)
[2017-11-22] MEDS: BENADRYL 25 MG CAPSULE PO SCH (21:46)
[2017-11-23] MEDS: solu-MEDROL 125 MG IV SCH ×5 (00:02→23:39)
[2017-11-23] MEDS: DUONEB 0.5-3 MG/3 ml Neb IH SCH ×5 (03:56→19:05)
[2017-11-23] MEDS: MORPHINE SULFATE 2 MG INJ IV PRN (04:02)
[2017-11-23 05:42] LABS: Hematocrit 31.7 % (35-47); Hemoglobin 9.6 gm/dl (12.0-16.0); Mean Cell Volume 89.5 fl (78-100); Mean Corpuscular Hemoglobin 27.1 pg (26-32); Mean Corpuscular Hgb Concent. 30.3 g/dl (32-36); Mean Platelet Volume 10.1 fl (6-9.5); Platelet Count 231 K/mm3 (150-450); Red Blood Count 3.54 M/mm3 (4.1-5.4); Red Cell Distribution Width 13.6 % (11.5-14.0); White Blood Count 10.1 K/mm3 (4.0-10.5)
[2017-11-23 06:03] LABS: ANION GAP 8.9 MEQ/L (5-15); BLOOD UREA NITROGEN 15 mg/dL (7-17); CHLORIDE 103 mmol/L (98-107); Calcium 8.4 mg/dL (8.4-10.2); Carbon Dioxide 32 mmol/L (22-30); Glucose 144 mg/dL (74-106); Potassium 3.6 mmol/L (3.5-5.1); SODIUM 141 mmol/L (137-145)
[2017-11-23] MEDS: Sodium Chloride 0.9% 1000 ML 1,000 ML IV SCH ×2 (06:27→16:58)
[2017-11-23] MEDS ORDERED: DUONEB 0.5-3 MG/3 ml Neb IH ONE (07:00)
[2017-11-23] MEDS ORDERED: PROVENTIL COMMON CANISTER IH SCH (07:00)
[2017-11-23] MEDS: Spiriva 18 Mcg/Cap Inhaler IH SCH (07:01)
[2017-11-23] MEDS: Advair Hfa 230/21 Mcg COMMON CANISTER IH SCH ×2 (07:01→19:08)
--- NOTE | 2017-11-23 08:24 | PCM.NOTE ---
Date and Time: 11/23/17821 Subjective Assessment: patient reports some improvement, still has no activity tolerance. hard to eat due to dyspnea, currently on high flow oxygen 40%, unable to tolerate further weaning thus far Objective Exam General Appearance: no apparent distress, alert, anxiety Skin Exam: normal color, warm, dry Ears, Nose, Throat Exam: pharynx normal, moist mucous membranes Neck Exam: normal inspection, non-tender, supple Respiratory Exam: prolonged expirations, wheezing Cardiovascular Exam: regular rate/rhythm, normal heart sounds Gastrointestinal/Abdomen Exam: soft, No tenderness, No mass Back Exam: normal inspection, normal range of motion, No CVA tenderness, No vertebral tenderness OBJECTIVE DATA Vital Signs: Vital Signs - 24 hr Temp Pulse Resp BP Pulse Ox 11/23/17 07:57 95 H 11/23/17 07:47 98.0 F 95 H 19 162/92 97 11/23/17 07:05 89 22 98 11/23/17 07:00 88 20 156/88 97 11/23/17 04:00 82 17 148/84 95 11/23/17 03:56 76 20 95 11/23/17 00:00 98.9 F 85 17 138/91 97 11/22/17 23:53 91 H 11/22/17 23:42 80 15 94 L 11/22/17 21:30 84 16 99 11/22/17 20:00 81 11/22/17 19:41 82 25 H 96 11/22/17 18:08 106 H 189/101 11/22/17 17:00 100 H 168/108 11/22/17 16:00 98.5 F 114 H 25 H 168/141 95 11/22/17 15:00 91 H 26 H 96 11/22/17 12:00 98.0 F 94 H 20 144/96 96 11/22/17 11:09 103 H 24 94 L Oxygen-Last 24 hours O2 Percentage 40% O2 Percentage 40% O2 Percentage 40% Oxygen Flowrate (L/min)-RT 40 Oxygen Flowrate (L/min)-RT 40 Oxygen Flowrate (L/min)-RT 40 Oxygen Flowrate (L/min)-RT 30 Oxygen Flowrate (L/min)-RT 30 Pain Assessment - Last Documented Pain Intensity 6 [facility] Intake and Output: Intake & Output 11/20/17 11/21/17 11/22/17 11/23/17 11:59 11:59 11:59 11:59 Intake Total 2963 1156 Output Total 8917 9470 Balance 1294 -634 Weight 48.2 kg 47.8 kg Lab Results: Lab Results-Last 24 Hours 11/22/17 11/23/17 11/23/17 Range/Units 05:20 05:25 05:25 WBC 10.1 (4.0-10.5) K/mm3 RBC 3.54 L (4.1-5.4) M/mm3 Hgb 9.6 L (12.0-16.0) gm/dl Hct 31.7 L (35-47) % MCV 89.5 (78-100) fl MCH 27.1 (26-32) pg MCHC 30.3 L (32-36) g/dl RDW 13.6 (11.5-14.0) % Plt Count 231 (150-450) K/mm3 MPV 10.1 H (6-9.5) fl Segmented Neutrophils 95 H (36.0-66.0) % Lymphocytes (Manual) 5 L (24-44) % Hypochromia 1+ Platelet Estimate NORMAL (NORMAL) RBC Morphology ABNORMAL Poikilocytosis 1+ Anisocytosis 1+ Sodium 141 (137-145) mmol/L Potassium 3.6 (3.5-5.1) mmol/L Chloride 103 (98-107) mmol/L Carbon Dioxide 32 H (22-30) mmol/L Anion Gap 8.9 (5-15) MEQ/L BUN 15 (7-17) mg/dL Creatinine 0.50 L (0.52-1.04) mg/dL Estimated GFR > 60.0 ML/MIN Glucose 144 H (74-106) mg/dL Calcium 8.4 (8.4-10.2) mg/dL Radiology Exams: Radiology Procedures Category Date Time Status CHEST 1 VIEW (PORTABLE) Urgent Exams 11/23/17 08:20 Ordered Multi-Disciplinary Progress Notes: Multi-Disciplinary Progress Notes 11/22/17 15:46 Respiratory Note by Deanna Tang water bottle added to high flow NC Initialized on 11/22/17 15:46 - END OF NOTE Assessment/Plan (1) Acute and chronic respiratory failure ([id number]) Current Visit: Yes Status: Acute Onset Date: ~11/20/17 Qualifiers: Respiratory failure complication: hypoxia and hypercapnia Qualified Code(s) : J96.21 - Acute and chronic respiratory failure with hypoxia; J96.22 - Acute and chronic respiratory failure with hypercapnia; J96.22 - Acute and chronic respiratory failure with hypercapnia; J96.22 - Acute and chronic respiratory failure with hypercapnia Code(s): J96.20 - ACUTE AND CHR RESP FAILURE, UNSP W HYPOXIA OR HYPERCAPNIA (2) Acute exacerbation of chronic obstructive airways disease Current Visit: Yes Status: Acute Onset Date: ~11/20/17 Assessment & Plan: patient on IV rocephin and zithromax, solu medrol 80mg IV q6 hrs and nebulizer treatments. currently still requiring high flow oxygen, pulm consult pending for today Code(s): J44.1 - CHRONIC OBSTRUCTIVE PULMONARY DISEASE W (ACUTE) EXACERBATION
--- NOTE | 2017-11-23 08:44 | XRAY ---
Indication: Cough and wheezing. Comparison: November 20, 2017. Portable apical lordotic chest demonstrates stable bibasilar infiltrates/atelectasis and right effusion with minimally worsening left base effusion. Remaining lungs emphysematous and heart is not enlarged. No new cardiopulmonary abnormalities.
[2017-11-23] MEDS: ENOXAPARIN SODIUM SQ SCH (08:56)
[2017-11-23] MEDS: ECOTRIN 81 MG PO SCH (08:56)
[2017-11-23] MEDS: NORVASC 5 MG PO SCH ×2 (08:56→21:00)
[2017-11-23] MEDS: Ativan 2 MG/1 ML VIAL IV PRN ×3 (08:56→16:55)
[2017-11-23] MEDS: PROVENTIL COMMON CANISTER IH SCH ×4 (09:04→20:59)
--- NOTE | 2017-11-23 14:47 | CONS ---
CONSULT DATE: 11/23/2017 HISTORY: Miss Stanford is a 72 year-old woman with history of end-stage chronic obstructive pulmonary disease, well known to me, who apparently got progressively short of breath leading to an emergency room visit. The patient has been hospitalized at [facility] ICU. She was brought to the emergency room on 11/20/2017 at around 2015 hours. The patient had a chest x-ray that showed bilateral low lung infiltrate suggestive of pneumonia with small effusions right greater than left. The patient is being treated with Rocephin and Zithromax along with high flow oxygen alternating with noninvasive ventilation. She appears weak but is able to talk. She does report cough which has been minimally productive. Which reported leg swelling which has now gone down. The patient was also noted to have a short run of tachyarrhythmia during her stay. PAST MEDICAL HISTORY: Positive for chronic obstructive pulmonary disease, hypertension, anxiety, frailty, osteoporosis. PAST SURGICAL HISTORY: No recent surgeries. PERSONAL AND SOCIAL HISTORY: She is a former smoker, lives with her . MEDICATIONS: Medications are reviewed. ALLERGIES: CODEINE, SULFA, QUININE, IV CONTRAST. PHYSICAL EXAMINATION: This is an elderly frail woman who appears tachypneic at rest but is able to carry on conversation. VITAL SIGNS: She is afebrile. Heart rate 113, blood pressure 151/85. Saturating 95% on 4 liters high flow. HEENT: Normocephalic. Oral exam is limited. NECK: Short. CVS: First and second heart sounds show tachycardia. RESPIRATORY: Shows increase in AP diameter of chest. Breath sounds are diminished. Scattered rhonchi. ABDOMEN: Soft. EXTREMITIES: No significant edema is noted. The patient has been started on Norvasc the dose of which was increased today along with bronchodilators, Plavix, Rocephin, Zithromax, Solu-Medrol along with Lovenox for deep venous thrombosis prophylaxis. Home medications were continued. Urine culture pedro negative. Sodium 141, potassium 3.6, chloride 103, bicarb 32, glucose 144, BUN 15, creatinine 0.5. White blood cell count 10, hemoglobin 9.6, hematocrit 32, PLT 231,000. Blood cultures remained negative. Chest x-rays were reviewed. ABG showed pH of 7.20, pCO2 55, pO2 189. Troponin I has been negative. ASSESSMENT: This is a 72 year old woman admitted with: 1) Acute on chronic hypercapnic/hypoxic respiratory failure. 2) Community acquired pneumonia. 3) End stage chronic obstructive pulmonary disease with exacerbation. 4) Tachyarrhythmia/multifocal atrial tachycardia right before medications and pulmonary effect. 5) Anxiety. 6) Hypertension. RECOMMENDATIONS: I agree with present treatment. The patient needs to be weaned off supplemental oxygen gradually before she can be discharged. Resume Advair and Spiriva on discharge as well as along with bronchodilators. The patient may be appropriate for palliative care given end-stage pulmonary problems. She has been DNR status during the hospital stay. Unfortunately her prognosis appears poor due to end-stage pulmonary problems. Discussed with patient. Thank you for allowing me to participate in the care of Miss Stanford.
[2017-11-23] MEDS: PLAVIX 75 MG Tablet PO SCH (16:56)
[2017-11-23] MEDS: TYLENOL 325 MG PO PRN (17:46)
[2017-11-23] MEDS: ROCEPHIN 1 Gm-D5w 50 ml Bag** 1 G/50 ML IVPB IV SCH (20:58)
[2017-11-23] MEDS: Ativan 1 MG PO SCH (20:59)
[2017-11-23] MEDS: BENADRYL 25 MG CAPSULE PO SCH (21:00)
[2017-11-23] MEDS: ZOCOR 20MG PO SCH (21:00)
[2017-11-23] MEDS: Zithromax 500 MG/ 250 ML NaCl Premix 500 MG/250 ML IVPB IV SCH (21:48)
[2017-11-24] MEDS: MORPHINE SULFATE 2 MG INJ IV PRN ×4 (00:14→21:06)
[2017-11-24] MEDS: DUONEB 0.5-3 MG/3 ml Neb IH SCH ×7 (00:31→23:01)
[2017-11-24] MEDS: Sodium Chloride 0.9% 1000 ML 1,000 ML IV SCH ×2 (04:18→15:11)
[2017-11-24] MEDS: solu-MEDROL 125 MG IV SCH ×3 (05:29→18:38)
[2017-11-24 05:37] LABS: Granulocyte Absolute (ANC) 7.65 (1.4-6.9); Hematocrit 33.7 % (35-47); Hemoglobin 10.3 gm/dl (12.0-16.0); Mean Cell Volume 88.7 fl (78-100); Mean Corpuscular Hemoglobin 27.1 pg (26-32); Mean Corpuscular Hgb Concent. 30.6 g/dl (32-36); Mean Platelet Volume 10.1 fl (6-9.5); Platelet Count 238 K/mm3 (150-450); Red Cell Distribution Width 13.5 % (11.5-14.0); White Blood Count 8.4 K/mm3 (4.0-10.5)
[2017-11-24 06:04] LABS: ALBUMIN 3.5 g/dL (3.5-5.0); ALKALINE PHOSPHATASE 74 U/L (38-126); ANION GAP 8.6 MEQ/L (5-15); BLOOD UREA NITROGEN 13 mg/dL (7-17); CHLORIDE 99 mmol/L (98-107); Calcium 8.7 mg/dL (8.4-10.2); Carbon Dioxide 37 mmol/L (22-30); Creatinine 1 0.46 mg/dL (0.52-1.04); Glucose 144 mg/dL (74-106); Potassium 3.6 mmol/L (3.5-5.1); SGOT/AST 38 U/L (14-36); SGPT/ALT 33 U/L (0-35); SODIUM 141 mmol/L (137-145); Total Protein 6.2 g/dL (6.3-8.2)
[2017-11-24] MEDS: Ativan 2 MG/1 ML VIAL IV PRN ×3 (07:28→19:25)
[2017-11-24 07:36] LABS: BAND 2 % (0.0-2.0); Lymphocytes 8 % (24-44); Monocyte 4 % (0.0-12.0); Neutrophils 86 % (36.0-66.0); Total Cells Counted 100
[2017-11-24 07:37] LABS: ANISOCYTOSIS 1+; Platelet Estimate NORMAL (NORMAL); Poikilocytosis 1+
--- NOTE | 2017-11-24 08:31 | PCM.NOTE ---
Date and Time: 11/24/17828 Subjective Assessment: patient still requiring high flow oxygen at 40%, no new problems or concerns. seen by pulm yesterday Objective Exam General Appearance: no apparent distress, alert Skin Exam: normal color, warm, dry Respiratory Exam: wheezing Cardiovascular Exam: regular rate/rhythm, normal heart sounds Gastrointestinal/Abdomen Exam: soft, No tenderness, No mass Extremity Exam: normal inspection, normal range of motion OBJECTIVE DATA Vital Signs: Vital Signs - 24 hr Temp Pulse Resp BP Pulse Ox 11/24/17 05:50 89 20 97 11/24/17 05:48 89 20 97 11/24/17 04:00 80 22 140/73 97 11/24/17 00:00 98.2 F 102 H 26 H 170/91 94 L 11/23/17 23:00 96 H 22 96 11/23/17 20:58 115 H 45 H 89 L 11/23/17 20:00 98.8 F 96 H 20 156/84 94 L 11/23/17 19:37 92 H 11/23/17 19:00 82 26 H 97 11/23/17 16:00 98.8 F 94 H 18 137/73 98 11/23/17 14:51 103 H 22 96 11/23/17 14:30 96 11/23/17 13:05 114 H 22 94 L 11/23/17 12:37 115 H 17 137/93 95 11/23/17 12:00 115 H 11/23/17 11:41 98.7 F 108 H 21 150/89 94 L 11/23/17 11:00 112 H 24 89 L 11/23/17 09:28 120 H 20 93 L Oxygen-Last 24 hours O2 Percentage 40% O2 Percentage 40% O2 Percentage 40% O2 Percentage 40% Oxygen Flowrate (L/min)-RT 40 Oxygen Flowrate (L/min)-RT 40 Pain Assessment - Last Documented Pain Intensity 10 Pain Scale Used 0-10 Pain Scale Intake and Output: Intake & Output 11/21/17 11/22/17 11/23/17 11/24/17 11:59 11:59 11:59 11:59 Intake Total 2965 2680 0756 Output Total 2312 7234 9880 Balance 8545 -332 -5002 Weight 48.2 kg 47.8 kg 47.8 kg Lab Results: Lab Results-Last 24 Hours 11/24/17 11/24/17 Range/Units 05:25 05:25 WBC 8.4 (4.0-10.5) K/mm3 RBC 3.80 L (4.1-5.4) M/mm3 Hgb 10.3 L (12.0-16.0) gm/dl Hct 33.7 L (35-47) % MCV 88.7 (78-100) fl MCH 27.1 (26-32) pg MCHC 30.6 L (32-36) g/dl RDW 13.5 (11.5-14.0) % Plt Count 238 (150-450) K/mm3 MPV 10.1 H (6-9.5) fl Absolute Granulocytes 7.65 H (1.4-6.9) Segmented Neutrophils 86 H (36.0-66.0) % Band Neutrophils 2 (0.0-2.0) % Lymphocytes (Manual) 8 L (24-44) % Monocytes (Manual) 4 (0.0-12.0) % Platelet Estimate NORMAL (NORMAL) RBC Morphology NORMAL Poikilocytosis 1+ Anisocytosis 1+ Sodium 141 (137-145) mmol/L Potassium 3.6 (3.5-5.1) mmol/L Chloride 99 (98-107) mmol/L Carbon Dioxide 37 H (22-30) mmol/L Anion Gap 8.6 (5-15) MEQ/L BUN 13 (7-17) mg/dL Creatinine 0.46 L (0.52-1.04) mg/dL Estimated GFR > 60.0 ML/MIN Glucose 144 H (74-106) mg/dL Calcium 8.7 (8.4-10.2) mg/dL Total Bilirubin 0.10 L (0.2-1.3) mg/dL AST 38 H (14-36) U/L ALT 33 (0-35) U/L Alkaline Phosphatase 74 (38-126) U/L Serum Total Protein 6.2 L (6.3-8.2) g/dL Albumin 3.5 (3.5-5.0) g/dL Radiology Exams: Radiology Procedures Category Date Time Status CHEST 1 VIEW (PORTABLE) Urgent Exams 11/23/17 08:20 Completed Assessment/Plan (1) Acute and chronic respiratory failure ([id number]) Current Visit: Yes Status: Acute Onset Date: ~11/20/17 Qualifiers: Respiratory failure complication: hypoxia and hypercapnia Qualified Code(s) : J96.21 - Acute and chronic respiratory failure with hypoxia; J96.22 - Acute and chronic respiratory failure with hypercapnia; J96.22 - Acute and chronic respiratory failure with hypercapnia; J96.22 - Acute and chronic respiratory failure with hypercapnia Assessment & Plan: will attempt to wean oxygen as tolerated, continue current regimen. appreciate Dr Santillan's input and he seems to agree with her current management. discussed with patient, her and daughter and they all agree on hospice consult when deemed appropriate for discharge. Code(s): J96.20 - ACUTE AND CHR RESP FAILURE, UNSP W HYPOXIA OR HYPERCAPNIA (2) Acute exacerbation of chronic obstructive airways disease Current Visit: Yes Status: Acute Onset Date: ~11/20/17 Code(s): J44.1 - CHRONIC OBSTRUCTIVE PULMONARY DISEASE W (ACUTE) EXACERBATION (3) Pneumonia Current Visit: Yes Status: Acute Onset Date: ~11/20/17 Code(s): J18.9 - PNEUMONIA, UNSPECIFIED ORGANISM
[2017-11-24] MEDS: Spiriva 18 Mcg/Cap Inhaler IH SCH (09:30)
[2017-11-24] MEDS: PROVENTIL COMMON CANISTER IH SCH ×3 (09:30→21:12)
[2017-11-24] MEDS: Advair Hfa 230/21 Mcg COMMON CANISTER IH SCH ×2 (09:30→19:02)
[2017-11-24] MEDS: NORVASC 5 MG PO SCH ×2 (10:30→22:00)
[2017-11-24] MEDS: ECOTRIN 81 MG PO SCH (10:30)
[2017-11-24] MEDS: ENOXAPARIN SODIUM SQ SCH (10:31)
[2017-11-24 18:33] LABS: Appearance SLIGHTLY CLOUDY (CLEAR); Bilirubin NEGATIVE (NEGATIVE); Blood 250 Ery/ul (0-5); Glucose NEGATIVE (NEGATIVE); Ketones NEGATIVE (NEGATIVE); Leukocyte Esterase TRACE (NEGATIVE); Nitrite NEGATIVE (NEGATIVE); Protein,Urine Dip TRACE (Negative); Urobilinogen NORMAL mg/dL (0-1)
[2017-11-24 18:36] LABS: Epithelial Cells RARE /HPF (FEW); RBC >100 /HPF (0-2); WBC 0-2 /HPF (0-5)
[2017-11-24] MEDS: ROCEPHIN 1 Gm-D5w 50 ml Bag** 1 G/50 ML IVPB IV SCH (21:06)
[2017-11-24] MEDS: ZOCOR 20MG PO SCH (22:00)
[2017-11-24] MEDS: BENADRYL 25 MG CAPSULE PO SCH (22:00)
[2017-11-24] MEDS: Ativan 1 MG PO SCH (22:00)
[2017-11-24] MEDS: Zithromax 500 MG/ 250 ML NaCl Premix 500 MG/250 ML IVPB IV SCH (22:00)
[2017-11-25] MEDS: solu-MEDROL 125 MG IV SCH ×5 (00:10→23:25)
[2017-11-25] MEDS: MORPHINE SULFATE 2 MG INJ IV PRN ×5 (01:13→23:25)
[2017-11-25] MEDS: Sodium Chloride 0.9% 1000 ML 1,000 ML IV SCH ×3 (02:58→22:46)
[2017-11-25] MEDS: DUONEB 0.5-3 MG/3 ml Neb IH SCH ×6 (03:40→22:50)
[2017-11-25 05:33] LABS: Granulocyte Absolute (ANC) 10.63 (1.4-6.9); Hematocrit 35.8 % (35-47); Hemoglobin 10.6 gm/dl (12.0-16.0); Mean Cell Volume 90.2 fl (78-100); Mean Corpuscular Hemoglobin 26.7 pg (26-32); Mean Corpuscular Hgb Concent. 29.6 g/dl (32-36); Mean Platelet Volume 9.8 fl (6-9.5); Platelet Count 287 K/mm3 (150-450); Red Blood Count 3.97 M/mm3 (4.1-5.4); Red Cell Distribution Width 13.5 % (11.5-14.0); White Blood Count 11.9 K/mm3 (4.0-10.5)
[2017-11-25 05:49] LABS: BLOOD UREA NITROGEN 14 mg/dL (7-17); CHLORIDE 96 mmol/L (98-107); Calcium 8.8 mg/dL (8.4-10.2); Carbon Dioxide 40 mmol/L (22-30); Creatinine 1 0.46 mg/dL (0.52-1.04); Glucose 151 mg/dL (74-106); Potassium 3.5 mmol/L (3.5-5.1); SODIUM 142 mmol/L (137-145)
[2017-11-25] MEDS: Spiriva 18 Mcg/Cap Inhaler IH SCH (06:49)
[2017-11-25] MEDS: Advair Hfa 230/21 Mcg COMMON CANISTER IH SCH ×2 (06:50→18:17)
[2017-11-25] MEDS: Ativan 2 MG/1 ML VIAL IV PRN ×3 (07:08→18:24)
[2017-11-25 07:56] LABS: Lymphocytes 9 % (24-44); Monocyte 2 % (0.0-12.0); Neutrophils 89 % (36.0-66.0); Nucleated Red Blood Cell 1 %; Platelet Estimate NORMAL (NORMAL); Total Cells Counted 100; Toxic Granulation 1+
--- NOTE | 2017-11-25 08:32 | PCM.NOTE ---
Date and Time: 11/25/17829 Subjective Assessment: patient showing improvement, weaned to 6L oxymizer from high flow and tolerating so far. feeling some better Objective Exam General Appearance: mild distress, alert, thin Neurologic Exam: alert, oriented x 3 Skin Exam: normal color, warm, dry Respiratory Exam: diminished breath sounds, prolonged expirations, wheezing Cardiovascular Exam: regular rate/rhythm, normal heart sounds Gastrointestinal/Abdomen Exam: soft, No tenderness, No mass Extremity Exam: normal inspection, normal range of motion OBJECTIVE DATA Vital Signs: Vital Signs - 24 hr Temp Pulse Resp BP Pulse Ox 11/25/17 07:12 105 H 11/25/17 06:50 87 16 96 11/25/17 04:40 97.8 F 91 H 16 139/74 100 11/25/17 03:51 83 11/25/17 03:00 82 29 H 97 11/25/17 00:05 98.2 F 86 13 134/70 94 L 11/25/17 00:00 86 11/24/17 23:00 99 H 15 97 11/24/17 21:00 98.2 F 106 H 18 169/95 96 11/24/17 19:40 108 H 11/24/17 19:06 101 H 17 98 11/24/17 17:00 98.4 F 103 H 21 146/92 99 11/24/17 16:53 111 H 22 97 11/24/17 16:00 104 H 24 99 11/24/17 14:57 108 H 28 H 94 L 11/24/17 13:05 99 H 19 139/92 96 11/24/17 12:00 98.7 F 106 H 21 160/106 94 L 11/24/17 10:45 108 H 22 94 L 11/24/17 08:50 126 H 24 89 L Oxygen-Last 24 hours Oxygen Flowrate (L/min)-RT 7 Oxygen Flowrate (L/min)-RT 8 Oxygen Flowrate (L/min)-RT 8 Pain Assessment - Last Documented Pain Intensity 4 Pain Scale Used 0-10 Pain Scale Intake and Output: Intake & Output 11/22/17 11/23/17 11/24/17 11/25/17 11:59 11:59 11:59 11:59 Intake Total 2969 4366 2708 5030 Output Total 6012 4500 5950 2700 Balance 1294 -634 -3242 2332 Weight 48.2 kg 47.8 kg 47.8 kg 48.6 kg Lab Results: Lab Results-Last 24 Hours 11/24/17 11/25/17 11/25/17 Range/Units 17:00 05:25 05:25 WBC 11.9 H (4.0-10.5) K/mm3 RBC 3.97 L (4.1-5.4) M/mm3 Hgb 10.6 L (12.0-16.0) gm/dl Hct 35.8 (35-47) % MCV 90.2 (78-100) fl MCH 26.7 (26-32) pg MCHC 29.6 L (32-36) g/dl RDW 13.5 (11.5-14.0) % Plt Count 287 (150-450) K/mm3 MPV 9.8 H (6-9.5) fl Absolute Granulocytes 10.63 H (1.4-6.9) Segmented Neutrophils 89 H (36.0-66.0) % Lymphocytes (Manual) 9 L (24-44) % Monocytes (Manual) 2 (0.0-12.0) % Nucleated RBCs 1 % Toxic Granulation 1+ Platelet Estimate NORMAL (NORMAL) RBC Morphology NORMAL Sodium 142 (137-145) mmol/L Potassium 3.5 (3.5-5.1) mmol/L Chloride 96 L (98-107) mmol/L Carbon Dioxide 40 H (22-30) mmol/L Anion Gap 10.0 (5-15) MEQ/L BUN 14 (7-17) mg/dL Creatinine 0.46 L (0.52-1.04) mg/dL Estimated GFR > 60.0 ML/MIN Glucose 151 H (74-106) mg/dL Calcium 8.8 (8.4-10.2) mg/dL Ur Collection Type CCMS Urine Color PINK (YELLOW) Urine Appearance SLIGHTLY CLOUDY (CLEAR) Urine pH 8.0 (5-6) Ur Specific [place] 1.010 (1.005-1.025) Urine Protein TRACE (Negative) Urine Ketones NEGATIVE (NEGATIVE) Urine Blood 250 (0-5) Matthew/ul Urine Nitrite NEGATIVE (NEGATIVE) Urine Bilirubin NEGATIVE (NEGATIVE) Urine Urobilinogen NORMAL (0-1) mg/dL Ur Leukocyte Esterase TRACE (NEGATIVE) Urine Microscopic RBC >100 (0-2) /HPF Urine Microscopic WBC 0-2 (0-5) /HPF Ur Epithelial Cells RARE (FEW) /HPF Urine Glucose NEGATIVE (NEGATIVE) mg/dL Specimen Received 11-24-17 5838 Radiology Exams: Radiology Procedures Category Date Time Status CHEST 1 VIEW (PORTABLE) Urgent Exams 11/23/17 08:20 Completed Assessment/Plan (1) Acute and chronic respiratory failure ([id number]) Current Visit: Yes Status: Acute Onset Date: ~11/20/17 Qualifiers: Respiratory failure complication: hypoxia and hypercapnia Qualified Code(s) : J96.21 - Acute and chronic respiratory failure with hypoxia; J96.22 - Acute and chronic respiratory failure with hypercapnia; J96.22 - Acute and chronic respiratory failure with hypercapnia; J96.22 - Acute and chronic respiratory failure with hypercapnia Assessment & Plan: patient has endstage copd, plan is to discharge home on hospice likely on tuesday , improvement with able to wean some oxygen noted. will transfer to floor today and d/c [place] Code(s): J96.20 - ACUTE AND CHR RESP FAILURE, UNSP W HYPOXIA OR HYPERCAPNIA (2) Acute exacerbation of chronic obstructive airways disease Current Visit: Yes Status: Acute Onset Date: ~11/20/17 Assessment & Plan: continue abx, IV solumedrol and neb therapy Code(s): J44.1 - CHRONIC OBSTRUCTIVE PULMONARY DISEASE W (ACUTE) EXACERBATION (3) Pneumonia Current Visit: Yes Status: Acute Onset Date: ~11/20/17 Assessment & Plan: on rocephin/zithromax day #5 today Code(s): J18.9 - PNEUMONIA, UNSPECIFIED ORGANISM
[2017-11-25] MEDS: PROVENTIL COMMON CANISTER IH SCH ×4 (09:04→21:39)
[2017-11-25] MEDS: NORVASC 5 MG PO SCH ×2 (09:48→22:47)
[2017-11-25] MEDS: ECOTRIN 81 MG PO SCH (09:48)
[2017-11-25] MEDS: PLAVIX 75 MG Tablet PO SCH (17:51)
[2017-11-25] MEDS: BENADRYL 25 MG CAPSULE PO SCH (22:42)
[2017-11-25] MEDS: ZOCOR 20MG PO SCH (22:42)
[2017-11-25] MEDS: Ativan 1 MG PO SCH (22:42)
[2017-11-25] MEDS: ROCEPHIN 1 Gm-D5w 50 ml Bag** 1 G/50 ML IVPB IV SCH (22:45)
[2017-11-25] MEDS: Zithromax 500 MG/ 250 ML NaCl Premix 500 MG/250 ML IVPB IV SCH (22:45)
[2017-11-26] MEDS: DUONEB 0.5-3 MG/3 ml Neb IH SCH ×6 (03:02→23:09)
[2017-11-26] MEDS: solu-MEDROL 125 MG IV SCH ×4 (06:10→23:55)
[2017-11-26] MEDS: Advair Hfa 230/21 Mcg COMMON CANISTER IH SCH ×2 (09:00→19:00)
[2017-11-26] MEDS: Spiriva 18 Mcg/Cap Inhaler IH SCH (09:06)
[2017-11-26] MEDS: PROVENTIL COMMON CANISTER IH SCH ×4 (09:07→21:03)
[2017-11-26] MEDS: MORPHINE SULFATE 2 MG INJ IV PRN ×4 (09:44→22:28)
[2017-11-26] MEDS: NORVASC 5 MG PO SCH ×2 (09:45→22:10)
[2017-11-26] MEDS: Ativan 2 MG/1 ML VIAL IV PRN ×4 (09:45→22:28)
[2017-11-26] MEDS: ECOTRIN 81 MG PO SCH (09:45)
[2017-11-26] MEDS: Zestril 10 MG PO SCH (11:20)
[2017-11-26] MEDS: Sodium Chloride 0.9% 1000 ML 1,000 ML IV SCH ×2 (11:27→22:05)
--- NOTE | 2017-11-26 12:11 | PCM.NOTE ---
Date and Time: 11/26/17 1207 Subjective Assessment: Pt without distinct complaints, still short of breath. Still on 6L oximizer. poor appetite. - Review of Systems Constitutional: No Fever Respiratory: Short Of Breath Objective Exam General Appearance: mild distress (tachypneic), alert Neurologic Exam: oriented x 3, cooperative Skin Exam: normal color, warm, dry, other (exensive bruising on UE bilat), No rash Respiratory Exam: diminished breath sounds (poor air exchange), prolonged expirations, wheezing (occasional), No crackles/rales, No rhonchi Cardiovascular Exam: regular rate/rhythm, normal heart sounds, No murmur Gastrointestinal/Abdomen Exam: soft, normal bowel sounds, No tenderness Extremity Exam: No pedal edema, No swelling Back Exam: normal inspection, No rash OBJECTIVE DATA Vital Signs: Vital Signs - 24 hr Temp Pulse Resp BP Pulse Ox 11/26/17 11:42 101 H 18 196/91 95 11/26/17 11:08 77 22 93 L 11/26/17 09:00 100 H 26 H 95 11/26/17 07:27 97.4 F 85 18 151/77 97 11/26/17 04:00 98.0 F 90 12 154/72 98 11/26/17 03:02 90 12 98 11/26/17 00:00 98.2 F 120 H 24 182/86 93 L 11/25/17 22:50 115 H 16 93 L 11/25/17 20:00 98.3 F 119 H 18 143/91 96 11/25/17 18:10 119 H 14 95 11/25/17 17:00 102 H 20 95 11/25/17 16:40 97.8 F 99 H 20 170/74 96 11/25/17 15:00 107 H 20 97 11/25/17 13:00 100 H 18 97 Oxygen-Last 24 hours O2 Percentage 6 Liters = 44% O2 Percentage 6 Liters = 44% O2 Percentage 6 Liters = 44% O2 Percentage 6 Liters = 44% O2 Percentage 6 Liters = 44% Pain Assessment - Last Documented Pain Intensity 10 Pain Scale Used [facility] Intake and Output: Intake & Output 11/24/17 11/25/17 11/26/17 11/27/17 11:59 11:59 11:59 11:59 Intake Total 2708 5030 2080 Output Total 5950 2700 2450 Balance -3242 2330 -370 Weight 47.8 kg 48.6 kg 47.4 kg Assessment/Plan (1) Acute and chronic respiratory failure ([id number]) Current Visit: Yes Status: Acute Onset Date: ~11/20/17 Qualifiers: Respiratory failure complication: hypoxia and hypercapnia Qualified Code(s) : J96.21 - Acute and chronic respiratory failure with hypoxia; J96.22 - Acute and chronic respiratory failure with hypercapnia; J96.22 - Acute and chronic respiratory failure with hypercapnia; J96.22 - Acute and chronic respiratory failure with hypercapnia Assessment & Plan: with end stage COPD. Overall her respiratory status is improving this stay. Respiratory attempts to wean O2 as tolerated. She is on day #6 of rocephin and zithromax, so I discontinued the zithromax today. Currently on 6L oximizer. Is able to eat now, not precluded by tachypnea, she just has no appetite. Code(s): J96.20 - ACUTE AND CHR RESP FAILURE, UNSP W HYPOXIA OR HYPERCAPNIA (2) Acute exacerbation of chronic obstructive airways disease Current Visit: Yes Status: Acute Onset Date: ~11/20/17 Code(s): J44.1 - CHRONIC OBSTRUCTIVE PULMONARY DISEASE W (ACUTE) EXACERBATION (3) Anxiety Current Visit: Yes Status: Acute Onset Date: ~11/20/17 Code(s): F41.9 - ANXIETY DISORDER, UNSPECIFIED (4) HTN (hypertension) Current Visit: Yes Status: Acute Onset Date: ~11/20/17 Qualifiers: Hypertension type: essential hypertension Qualified Code(s): I10 - Essential (primary) hypertension Assessment & Plan: BP continue to be elevated over the last 24 hours; yesterday her lows were in the 130s systolic. Highs to 196/91. Added lisinopril 10mg po daily. Will add hydralazine prn. Code(s): I10 - ESSENTIAL (PRIMARY) HYPERTENSION
[2017-11-26] MEDS: ROCEPHIN 1 Gm-D5w 50 ml Bag** 1 G/50 ML IVPB IV SCH (22:08)
[2017-11-26] MEDS: BENADRYL 25 MG CAPSULE PO SCH (22:09)
[2017-11-26] MEDS: Ativan 1 MG PO SCH (22:10)
[2017-11-26] MEDS: ZOCOR 20MG PO SCH (22:10)
[2017-11-27] MEDS: DUONEB 0.5-3 MG/3 ml Neb IH SCH ×5 (03:18→21:31)
[2017-11-27] MEDS: Ativan 2 MG/1 ML VIAL IV PRN ×4 (05:01→16:46)
[2017-11-27] MEDS: MORPHINE SULFATE 2 MG INJ IV PRN ×5 (05:01→21:25)
[2017-11-27 05:44] LABS: Granulocyte Absolute (ANC) 10.62 (1.4-6.9); Hematocrit 31.8 % (35-47); Hemoglobin 9.4 gm/dl (12.0-16.0); Mean Cell Volume 91.9 fl (78-100); Mean Corpuscular Hgb Concent. 29.6 g/dl (32-36); Mean Platelet Volume 10.1 fl (6-9.5); Platelet Count 253 K/mm3 (150-450); Red Blood Count 3.46 M/mm3 (4.1-5.4); Red Cell Distribution Width 13.6 % (11.5-14.0); White Blood Count 11.6 K/mm3 (4.0-10.5)
[2017-11-27 05:54] LABS: Mean Corpuscular Hemoglobin 27.1 pg (26-32)
[2017-11-27 06:03] LABS: BLOOD UREA NITROGEN 16 mg/dL (7-17); CHLORIDE 95 mmol/L (98-107); Calcium 8.2 mg/dL (8.4-10.2); Creatinine 1 0.45 mg/dL (0.52-1.04); Glucose 153 mg/dL (74-106); Potassium 3.2 mmol/L (3.5-5.1); SODIUM 140 mmol/L (137-145)
[2017-11-27] MEDS: solu-MEDROL 125 MG IV SCH ×4 (06:08→23:56)
[2017-11-27 06:10] LABS: Carbon Dioxide 42 mmol/L (22-30)
[2017-11-27 06:29] LABS: BAND 7 % (0.0-2.0); Lymphocytes 2 % (24-44); Monocyte 3 % (0.0-12.0); Neutrophils 88 % (36.0-66.0); Total Cells Counted 100
[2017-11-27 06:30] LABS: Platelet Estimate NORMAL (NORMAL)
[2017-11-27] MEDS: ECOTRIN 81 MG PO SCH (07:27)
[2017-11-27] MEDS: NORVASC 5 MG PO SCH ×2 (07:27→21:23)
[2017-11-27] MEDS: APRESOLINE 20 MG/ML INJ IV PRN ×2 (07:28→20:01)
[2017-11-27] MEDS: Zestril 10 MG PO SCH (07:28)
[2017-11-27] MEDS: Advair Hfa 230/21 Mcg COMMON CANISTER IH SCH ×2 (07:31→21:24)
[2017-11-27] MEDS: Spiriva 18 Mcg/Cap Inhaler IH SCH (07:33)
[2017-11-27] MEDS: Sodium Chloride 0.9% 1000 ML 1,000 ML IV SCH ×2 (07:33→16:45)
[2017-11-27] MEDS: PROVENTIL COMMON CANISTER IH SCH ×4 (09:10→21:25)
--- NOTE | 2017-11-27 10:27 | PCM.NOTE ---
Date and Time: 11/27/17 1022 Subjective Assessment: She is more anxious, asking for the ativan before it is due. Her O2 was increased on oximizer from 6L to 8L. She still has no appetite. Did receive hydralazing this a.m. x 1 for elevated BP but there is a question of whether this was done in error. - Review of Systems Constitutional: No Fever Respiratory: Short Of Breath Objective Exam General Appearance: mild distress, anxiety Neurologic Exam: alert, cooperative Skin Exam: normal color, warm, dry, No rash Respiratory Exam: diminished breath sounds, wheezing (faint scattered), No crackles/rales, No rhonchi Cardiovascular Exam: regular rate/rhythm, normal heart sounds, No murmur Extremity Exam: No pedal edema, No swelling Back Exam: normal inspection, No rash OBJECTIVE DATA Vital Signs: Vital Signs - 24 hr Temp Pulse Resp BP Pulse Ox 11/27/17 09:10 103 H 20 97 11/27/17 07:35 100 H 22 96 11/27/17 07:32 98.4 F 88 22 134/73 96 11/27/17 04:00 98.1 F 96 H 20 160/76 95 11/27/17 03:18 107 H 20 80 L 11/27/17 00:00 98.4 F 101 H 21 199/88 95 11/26/17 23:09 101 H 21 95 11/26/17 19:58 98.2 F 107 H 16 142/84 95 11/26/17 18:59 104 H 17 97 11/26/17 17:15 114 H 20 94 L 11/26/17 15:54 98.2 F 117 H 20 140/72 95 11/26/17 15:00 80 24 94 L 11/26/17 13:00 114 H 22 95 11/26/17 11:42 101 H 18 196/91 95 11/26/17 11:08 77 22 93 L Oxygen-Last 24 hours O2 Percentage 6 Liters = 44% O2 Percentage 6 Liters = 44% O2 Percentage 6 Liters = 44% O2 Percentage 6 Liters = 44% O2 Percentage 6 Liters = 44% Pain Assessment - Last Documented Pain Intensity 5 Pain Scale Used 0-10 Pain Scale Intake and Output: Intake & Output 11/24/17 11/25/17 11/26/17 11/27/17 11:59 11:59 11:59 11:59 Intake Total 9079 1950 0 1935 Output Total 4970 2700 2450 Balance -3242 2330 -370 1935 Weight 47.8 kg 48.6 kg 47.4 kg 47.4 kg Lab Results: Lab Results-Last 24 Hours 11/27/17 11/27/17 Range/Units 04:52 04:52 WBC 11.6 H (4.0-10.5) K/mm3 RBC 3.46 L (4.1-5.4) M/mm3 Hgb 9.4 L (12.0-16.0) gm/dl Hct 31.8 L (35-47) % MCV 91.9 (78-100) fl MCH 27.1 (26-32) pg MCHC 29.6 L (32-36) g/dl RDW 13.6 (11.5-14.0) % Plt Count 253 (150-450) K/mm3 MPV 10.1 H (6-9.5) fl Absolute Granulocytes 10.62 H (1.4-6.9) Segmented Neutrophils 88 H (36.0-66.0) % Band Neutrophils 7 H (0.0-2.0) % Lymphocytes (Manual) 2 L (24-44) % Monocytes (Manual) 3 (0.0-12.0) % Platelet Estimate NORMAL (NORMAL) RBC Morphology NORMAL Sodium 140 (137-145) mmol/L Potassium 3.2 L (3.5-5.1) mmol/L Chloride 95 L (98-107) mmol/L Carbon Dioxide 42 H (22-30) mmol/L Anion Gap Not Reportable BUN 16 (7-17) mg/dL Creatinine 0.45 L (0.52-1.04) mg/dL Estimated GFR > 60.0 ML/MIN Glucose 153 H (74-106) mg/dL Calcium 8.2 L (8.4-10.2) mg/dL Assessment/Plan (1) Acute and chronic respiratory failure ([id number]) Current Visit: Yes Status: Acute Onset Date: ~11/20/17 Qualifiers: Respiratory failure complication: hypoxia and hypercapnia Qualified Code(s) : J96.21 - Acute and chronic respiratory failure with hypoxia; J96.22 - Acute and chronic respiratory failure with hypercapnia; J96.22 - Acute and chronic respiratory failure with hypercapnia; J96.22 - Acute and chronic respiratory failure with hypercapnia Assessment & Plan: End stage COPD. Dr. Santillan has been consulted and agreed with current management. He is returning tomorrow, as is hospice, and she may be discharged to hospice tomorrow or the next day. Code(s): J96.20 - ACUTE AND CHR RESP FAILURE, UNSP W HYPOXIA OR HYPERCAPNIA (2) Acute exacerbation of chronic obstructive airways disease Current Visit: Yes Status: Acute Onset Date: ~11/20/17 Code(s): J44.1 - CHRONIC OBSTRUCTIVE PULMONARY DISEASE W (ACUTE) EXACERBATION (3) Anxiety Current Visit: Yes Status: Acute Onset Date: ~11/20/17 Assessment & Plan: increasing the freqency of the ativan to q3h prn. I am also increasing the frequency of the morphine to 2mg IV q2h prn as it may decrease her oxygen hunger. Code(s): F41.9 - ANXIETY DISORDER, UNSPECIFIED (4) HTN (hypertension) Current Visit: Yes Status: Acute Onset Date: ~11/20/17 Qualifiers: Hypertension type: essential hypertension Qualified Code(s): I10 - Essential (primary) hypertension Assessment & Plan: She has prn hydralazine; I did add lisinopril 10mg yesterday. Code(s): I10 - ESSENTIAL (PRIMARY) HYPERTENSION
[2017-11-27] MEDS: ROCEPHIN 1 Gm-D5w 50 ml Bag** 1 G/50 ML IVPB IV SCH (21:22)
[2017-11-27] MEDS: Ativan 1 MG PO SCH (21:23)
[2017-11-27] MEDS: BENADRYL 25 MG CAPSULE PO SCH (21:23)
[2017-11-27] MEDS: ZOCOR 20MG PO SCH (21:23)
[2017-11-27] MEDS: TYLENOL 325 MG PO PRN (21:25)
[2017-11-28] MEDS: DUONEB 0.5-3 MG/3 ml Neb IH SCH ×4 (03:46→11:06)
[2017-11-28] MEDS: Sodium Chloride 0.9% 1000 ML 1,000 ML IV SCH ×2 (03:53→04:59)
[2017-11-28] MEDS: Ativan 2 MG/1 ML VIAL IV PRN ×3 (03:59→13:27)
[2017-11-28] MEDS: MORPHINE SULFATE 2 MG INJ IV PRN ×3 (04:00→14:13)
[2017-11-28] MEDS: solu-MEDROL 125 MG IV SCH ×2 (06:15→13:21)
--- NOTE | 2017-11-28 07:59 | PCM.DS ---
Discharge Summary Date of Admission: 11/21/17 08:09 Admitting Physician: ANDREAS EMMANUEL Consults: Consults on Case 11/21/17 08:15 Consult Pulmonology ROUTINE Primary Care Provider: LETI MORALES ANSELMO Allergies Allergies codeine Allergy (Severe, Verified 11/20/17 20:43) Swelling SOB quinine Allergy (Severe, Verified 11/20/17 20:43) "DRAW UP INTO ANTONELLA Sulfa (Sulfonamide Antibiotics) Allergy (Mild, Verified 11/20/17 20:43) IV CONTRAST Allergy (Uncoded 11/20/17 20:43) Swelling "DRAW UP INTO A POSTION Hospital Summary - Hospital Course Hospital Course: patient was admitted with copd exacerbation, initially requiring high flow oxygen/bipap, has been seen by Dr Santillan as he is familiar with her. her copd is endstage, family has decided to go home with hospice care at this time. - Vitals & Intake/Output Vital Signs: Vital Signs Temperature 97.6 F 11/28/17 04:00 Pulse Rate 95 H 11/28/17 04:00 Respiratory Rate 16 11/28/17 04:00 Blood Pressure 172/77 11/28/17 04:00 O2 Sat by Pulse Oximetry 90 L 11/28/17 04:00 Oxygen-Last Documented O2 Percentage 6 Liters = 44% Intake & Output: Intake & Output 11/25/17 11/26/17 11/27/17 11/28/17 11:59 11:59 11:59 11:59 Intake Total 5030 2080 1935 360 Output Total 2700 2450 Balance 2330 -370 1935 360 Weight 48.6 kg 47.4 kg 47.4 kg - Lab Result Diagrams: 11/27/17 04:52 11/27/17 04:52 Micro Results-Entire Visit: Microbiology 11/21/17 10:27 Urine Culture - Final Urine, Indwelling Catheter NO GROWTH - Procedures and Test Procedures and Tests throughout Hospitalization: Therapy Orders & Screens 11/21/17 04:24 Respiratory Nebulizer PRN Comment: ALBUTEROL Q2PRN FOR SOB/WHEEZING Diagnosis: Pneumonia, COPD 11/21/17 04:25 Oxygen NASAL CANNULA 4 lpm Comment: Diagnosis: Pneumonia, COPD 11/21/17 07:00 Respiratory MDI BID Comment: ADVAIR 230/21 2 PUFFS BID Diagnosis: Pneumonia, COPD Respiratory Nebulizer Q4H Comment: ALBUTEROL Q4 HOURS Diagnosis: Pneumonia, COPD 11/21/17 10:00 Respiratory MDI DAILY Comment: SPIRIVA 1 CAPSULE DAILY Diagnosis: Pneumonia, COPD 11/21/17 11:15 Oxygen High Flow High Flow 35 lpm Comment: 35 LPM @ 60% Diagnosis: Pneumonia, COPD 11/22/17 21:00 Respiratory MDI 09,13,17,21 Comment: Diagnosis: ACUTE RESPIRATORY DISTRESS, HYPOXIA,Pneumonia, COPD Discharge Exam General Appearance: no apparent distress, thin Skin Exam: normal color, warm, dry Respiratory Exam: prolonged expirations Cardiovascular Exam: regular rate/rhythm, normal heart sounds Gastrointestinal/Abdomen Exam: soft, No tenderness, No mass Extremity Exam: normal inspection, normal range of motion Final Diagnosis/Problem List - Final Discharge Diagnosis/Problem (1) Acute and chronic respiratory failure ([id number]) Current Visit: Yes Status: Acute Onset Date: ~11/20/17 (2) Acute exacerbation of chronic obstructive airways disease Current Visit: Yes Status: Acute Onset Date: ~11/20/17 (3) Pneumonia Current Visit: Yes Status: Acute Onset Date: ~11/20/17 - Discharge Disposition: Home, Self-Care Condition: Stable Prescriptions: New Prednisone 20 mg PO UD #18 tablet Lisinopril 10 mg [Zestril 10 MG] 10 mg PO DAILY #30 tablet Continue Fluticasone/Salmeterol [Advair 500-50 Diskus] 1 disk IH BID Tiotropium [place] Inhaler [Spiriva 18 Mcg/Cap Inhaler] 1 ea IH DAILY Prednisolone [Millipred Dp] 5 mg PO DAILY Polyethylene Glycol 3350 17 gm [Miralax Powder 17GM PACKET] 17 gm PO DAILY PRN PRN Reason: Constipation Aspirin [Aspir 81] 81 mg PO DAILY #0 tablet. Albuterol 2.5 mg/0.5 ml [PROVENTIL Solution 2.5 MG/0.5 ML] 2.5 mg IH TID #0 vial.neb. Amlodipine Besylate 5 mg [Norvasc 5 mg] 2.5 mg PO HS Clopidogrel Bisulfate 75 mg [PLAVIX 75 MG Tablet] 75 mg PO MOWEFR Atorvastatin Calcium 20 mg PO HS Acetaminophen/Diphenhydramine [Tylenol Pm Ex-Strength Caplet] 1 cap PO HS Ipratropium [place] Hfa [Atrovent HFA MDI] 2 puff IH QID Changed Lorazepam 1 mg [Ativan 1 MG] 1 mg PO Q4-6HPRN PRN #120 tablet PRN Reason: Anxiety Follow up with: LETI MORALES MD [Primary Care Provider] - 1 Week
[2017-11-28] MEDS: Spiriva 18 Mcg/Cap Inhaler IH SCH (08:18)
[2017-11-28] MEDS: Advair Hfa 230/21 Mcg COMMON CANISTER IH SCH (08:19)
[2017-11-28] MEDS: APRESOLINE 20 MG/ML INJ IV PRN (08:23)
[2017-11-28] MEDS: NORVASC 5 MG PO SCH (09:32)
[2017-11-28] MEDS: Zestril 10 MG PO SCH (09:32)
[2017-11-28] MEDS: ECOTRIN 81 MG PO SCH (09:32)
[2017-11-28] MEDS: PROVENTIL COMMON CANISTER IH SCH (10:59)
[2017-11-28 12:27] VITALS: BP 145/79; PULSE 117; O2SAT 95
== END 2017-11-28 15:00 | disposition home or self-care (01) | DRG 189 ==
LOC: ED 20:15 → ICU 11-21 01:40 → OBSVTOIN 11-21 08:09 → MED SURG 11-25 10:17
PROVIDERS: ADMIT Family Medicine; ATTEND Family Medicine
DX: J96.21 Acute and chronic respiratory failure with hypoxia (principal); J96.00 Acute respiratory failure, unspecified whether with hypoxia or hypercapnia; J44.1 Chronic obstructive pulmonary disease with (acute) exacerbation; I47.1 Supraventricular tachycardia; J96.22 Acute and chronic respiratory failure with hypercapnia; I25.10 Atherosclerotic heart disease of native coronary artery without angina pectoris; J18.9 Pneumonia, unspecified organism; J45.909 Unspecified asthma, uncomplicated; J44.9 Chronic obstructive pulmonary disease, unspecified; M81.0 Age-related osteoporosis without current pathological fracture; Z87.891 Personal history of nicotine dependence; F41.9 Anxiety disorder, unspecified; I10 Essential (primary) hypertension; Z79.899 Other long term (current) drug therapy
CPT/HCPCS: 36000; 36415; 36600; 71045; 80048; 80053; 81000; 81002; 82150; 82375; 82803; 83605; 83690; 83735; 83880; 84484; 85025; 85027; 85379; 85610; 85730; 87040; 87086; 93005; 93041; 94002; 94003; 94150; 94640; 94760; 94799; 96360; 96361; 96365; 99285; J7609; J0360; J0456; J0696; J1650; J2060; J2270; J2550; J2930; A9270-GY